=== PATIENT | male | born 1965 | race Caucasian/White ===

== ENCOUNTER 2025-04-07 13:36 | Emergency (ER) | payer OTHER, SELFPAY ==
--- NOTE | ~2025-04-07 | CT_ITS ---
EXAM: CT abdomen pelvis w con - 04/07/2025 15:19 CDT History: 59 years old Male with lower abdominal pain TECHNIQUE: Multidetector CT of the abdomen and pelvis with intravenous contrast. Coronal and sagitta l reformats were also provided for review. Automatic exposure control was used for this study. CONTRAST: 100 cc of Optiray 350 was used for this study. COMPARISON: None Available. FINDINGS: VISUALIZED CHEST: Visualized lungs are clear. ABDOMEN and PELVIS: LIVER: Within normal limits. GALLBLADDER: No calcified gallstones. BILE DUCTS: No dilatation. SPLEEN: Multiple calcified granulomas seen in the spleen. PANCREAS: Within normal limits. ADRENAL GLANDS: Within normal limits. KIDNEYS and URETERS: Enlarged prostate causing mild left hydroureter and moderate hydronephrosis. Mul tiple subcentimeter hypodensities are seen in both kidneys, too small to accurately characterize. Sim ple right renal cyst in lower pole of the right kidney. 8 mm calculus in the lower pole of the left k idney. URINARY BLADDER: Within normal limits. STOMACH and BOWEL: No abnormal bowel wall thickening. No obstruction or pneumatosis. Normal appendix. Multiple fluid-filled distended loops of jejunum are seen in the mid abdomen, a nonspecific finding and can be seen in enteritis. REPRODUCTIVE ORGANS: Enlarged prostate measuring up to 6 cm in greatest transverse dimension. Partial ly visualized probable hydrocele. Surgical clips are seen in the scrotum. MESENTERY/PERITONEAL CAVITY: No free fluid or pneumoperitoneum. LYMPH NODES: No abdominal or pelvic lymphadenopathy. ABDOMINAL WALL: Bilateral fat-containing inguinal hernias. VASCULATURE: Within normal limits. MUSCULOSKELETAL: Multilevel degenerative changes of the spine. IMPRESSION: 1. Enlarged prostate causing mild left hydroureter and moderate hydronephrosis. Multiple subcentimet er hypodensities are seen in both kidneys, too small to accurately characterize. Simple right renal c yst in lower pole of the right kidney. 2. Multiple fluid-filled distended loops of jejunum are seen in the mid abdomen, a nonspecific findi ng and can be seen in enteritis. 3. Partially visualized probable hydrocele. Reviewed, dictated and finalized at location A. IMPRESSION: 1. Enlarged prostate causing mild left hydroureter and moderate hydronephrosis . Multiple subcentimeter hypodensities are seen in both kidneys, too small to a ccurately characterize. Simple right renal cyst in lower pole of the right kidn ey. 2. Multiple fluid-filled distended loops of jejunum are seen in the mid abdome n, a nonspecific finding and can be seen in enteritis. 3. Partially visualized probable hydrocele.
[2025-04-07 13:41] VITALS: BP 158/97; PULSE 62; RESP 16; TEMP 36.8; O2SAT 99
[2025-04-07 14:06] VITALS: BP 175/97; PULSE 63; RESP 18; O2SAT 100
[2025-04-07 14:17] LABS: Hematocrit 48.0 % (42.0-52.0); Hemoglobin 15.7 g/dL (14.0-18.0); Immature Granulocyte Percent A 0.2 % (0-0.5); Lymphocytes Absolute Auto 0.88 K/mm3 (0.9-3.2); Mean Corpuscular HGB Conc 32.7 g/dl (32-36); Mean Corpuscular Hemoglobin 27.2 pg (26-34); Mean Corpuscular Volume 83.0 fl (80-100); Nucleated Red Blood Cells Absolute Auto 0.000 K/mm3 (0.0-0.012); Nucleated Red Blood Cells Perc 0.0 % (0.0-0.2); Platelet Count Result 190 k/mm3 (150-375); Red Blood Count 5.78 M/mm3 (4.6-6.20); White Blood Count 9.0 K/mm3 (4.5-10.0)
--- OUTSIDE RECORDS SUMMARY | 2025-04-07 14:28 | XMS_ITS | Continuity of Care Document ---
Author Organization [facility] Address [address] [place] [address] Phone Care Team Providers Care Apple Turner Name Role Phone Juwan Lauren OD Unavailable Unavailable Allergies, Adverse Reactions, Alerts Substance Reaction Status Criticality No Known Allergies Active No Inform ation Medications Medication Instructions Dosage Effective Dates (start - stop) Status Comments amlodipine 10 mg tablet Take 1 tablet ev robb day - Active carvedilol 12.5 mg tablet Take 1 tablet twice a day - Active hydrochlorothiazide 12.5 mg capsule Take 1 tablet every day - Active lisinopril 40 mg tablet Take 1 tablet ev robb day - Active sertraline 100 mg tablet Take 2 tablets every day - Active leflunomide 20 mg tablet Take 1 tablet e very day - Active Procedures Procedure Date CONTACT LENS SHIPPING FEE Oph Serv: Med Exam; Interm E 23 Refraction OCT Retina Offic/outpt E&m Estab Mod-hi 2 Script & Fit Contact; Ex Aphak 23 Refraction EST. Routine Exam Comprehensive 023 Cntct Lens Hydrophilic Sph/roderick Script & Fit Contact; Ex Aphak 22 Refraction EST. Routine Exam Comprehensive 022 Cntct Lens Hydrophilic Sph/roderick Mar-09-20 21 Script & Fit Contact; Ex Aphak 21 Refraction EST. Routine Exam Comprehensive 021 Cntct Lens Hydrophilic Sph/roderick 19 GLASSES CHECK Script & Fit Contact; Ex Aphak 19 Refraction New Routine Exam Comprehensive Advance Directives Directive Yes / No Effective Date File Name No Information Encounters Encounter Description Practice Location Reason(s) For Visit Diagnoses Date Provider Providers Copied on Encounter [facility], [address], [place], [place], [id number], [place] tel:[phone] [facility] No Information Lauren OD Jwuan. [address], [place], [address], [place]. tel:[phone] Referring Provider: Luis Chaves MD, [address] [place], [address]. tel:[phone] [facility] [employer] [facility], [address], [place], [place], [id number], [place] tel:[phone] [facility] No Information Lauren OD Juwan. [address], [place], [address], [place]. tel:[phone] Referring Provider: Juwan Lauren OD, [address], [place], [address]. tel:[phone] [facility] [address], [place], [place], [id number], [place] tel:[phone] [facility] cataract eval (chief complaint) Age-related nuclear cataract, bilateral Anastacio Smith. [address] [place], [address], [place]. tel:[phone] Referring Provider: Luis Chaves MD, [address] [place], [address]. tel:[phone] Offic/outpt E&m Estab Mod-hi 2 [facility] [employer] [facility], [address], [place], [place], [id number], [place] tel:[phone] [facility] problem (chief complaint) Age-related nuclear cataract, bilateralMyop ia, bilateral Lauren OD Juwan. [address], [place], [address], [place]. tel:[phone] Referring Provider: Juwan Lauren OD, [address], [place], [address]. tel:[phone] [facility], [address], [place], [place], [id number], [place] tel:[phone] [facility] routine exam (chief complaint) Encounter for exam of eyes and vision w abnormal findingsMyopi a, bilateralAge- related nuclear cataract, bilateral Lauren OD Juwan. [address], [place], [address], [place]. tel:[phone] Referring Provider: Juwan Lauren OD, [address], [place], [address]. tel:[phone] [facility], [address], [place], [place], [address], [place] tel:[phone] [facility] No Information Sonia OD Judy. [address], [facility] [place], [address], [place]. tel:[phone] Referring Provider: Judy Scott OD B, [address], [place], [address]. tel:[phone] [facility], [address], [place], [place], [id number], [place] tel:[phone] [facility] contact lens evaluation (chief complaint) Encounter for exam of eyes and vision w/o abnormal findingsMyopi a, bilateral Nov- Sonia OD Judy. [address], [facility] [place], [address], [place]. tel:[phone] Referring Provider: Judy Scott OD B, [address], [place], [address]. tel:[phone] [facility], [address], [place], [place], [id number], [place] tel:[phone] [facility] No Information Sonia OD Judy. [address], [place], [address], [place]. tel:[phone] Referring Provider: Judy Scott OD B, [address], [place], [address]. tel:[phone] [facility], [address], [place], [place], [id number], [place] tel:[phone] [facility] routine exam (chief complaint) Encounter for exam of eyes and vision w abnormal findingsMyopi a, bilateral Sonia Kim. [address], [place], [address], [place]. tel:[phone] Referring Provider: Judy Scott OD B, [address], [place], [address]. tel:[phone] [facility], [address], [place], [place], [id number], [place] tel:[phone] [facility] No Information Sonia Kim. [address], [place], [address], [place]. tel:[phone] Referring Provider: Judy Scott OD B, [address], [place], [address]. tel:[phone] [facility], [address], [place], [place], [id number], [place] tel:[phone] [facility] contact lens check (chief complaint) Myopia, bilateral Sonia OD Judy. [address], [place], [address], [place]. tel:[phone] Referring Provider: Judy Scott OD B, [address], [place], [address]. tel:[phone] [facility], [address], [place], [place], [id number], [place] tel:[phone] [facility] routine exam (chief complaint) Encounter for exam of eyes and vision w abnormal findingsMyopi a, bilateral Sonia OD Judy. [address], [place], [address], [place]. tel:[phone] Referring Provider: Judy Scott OD B, [address], [place], [address]. tel:[phone] Family History Family Member Type Diagnosis Age At Onset Father Problem (finding) cataract Father Problem (finding) hypertension Payers Payer name Insurance type Covered republican ID Authoriza tion(s) [facility] [id number] Social History Type Description Quantity Date Captured Comments Alcohol Use Details Unknown Caffeine Use Details Unknown Tobacco Use Status No Information Smoking Status No Information Sex Male Chief Complaint And Reason For Visit No Information Reason For Referral Reason For Referral No Information History Of Present Illness Encounter Date Complaint History Of Prese nt Illness cataract eval The 57 year old male presents for cataract eval in the left eye. Pt. states for the past 18 mos has noticed a gradual increase in blurry vision out of the left eye. The symptom is constant. It affects distance and near vision. Pt. feels right eye vision is stable. Denies any difficulty with glare at this time. problem The 57 year old male presents for problem in both eyes. Pt states that he feels cataract OS might have gotten worse. Pt denies any noticeable changes OD. Pt states that OS is cloudy. Pt sates that Thursday he was at the [employer] and he could not see the [employer] screen. Pt denies any other concerns or complaints. routine exam The 57 year old male presents for routine exam in both eyes. Patient reports distance and near vision have decreased in OS since [place]. DVA and NVA are stable in OD. He denies flashes of light, new floaters, and pain. routine exam The 56 year old male presents for contact lens evaluation in both eyes. Patients feels like the vision in distance could be stronger, he has to squint. Patient notices floaters in os. Patient denies any headaches, flashes. routine exam routine exam The 55 year old male presents for a routine exam and contact lens exam in the both eyes. His last eye exam was about 16 month(s) ago. It affects near vision. The condition is worsening. He is complaining of difficulty reading and seeing the computer.. He will need more contacts. He does have glasses. contact lens check The 53 year o ld male presents for evaluation of contact lens check in the right eye and left eye. Pt. states distance and near vision is stable with current contacts. Ready to order supply. routine exam The 53 year old male presents for evaluation of routine exam in the right eye and left eye. Pt states his vision has been stable since his last eye exam about one year ago. He states he is having some discomfort with his ctl that he has now. Pt denies pain/redness and floaters. Functional Status Date Functional Assessmen t No Information Instructions Date Instruction Additional Infor mation Age-related nuclear cataract, bilateral, OU - With high myopia would recommend holding off on cataract surgery at this time until both eyes have the same complaints of glare and decreased vision. Patient to return in 6 months or PRN cataract evaluation OU. Related to Age-related nuclear cataract, bilateral Age-related nuclear cataract, bilateral, OU - Discussed 3D myopic shift OS over last 18m is due to changing NS OS>OD. Cataract(s) accounts for patient's complaints. Patient understands changing glasses will not improve vision. Patient desires to have evaluation for surgery.Pt is MF ctl wearer. Discussed IOL options including ROSIBEL and MF lOL Related to Age-related nuclear cataract, bilateral Myopia, bilateral, O U - Will order stronger OS trial for CTL. Discussed if OD not ready for cat sx will likely be unable to wear glasses after IOL OS and will need CTL OD and maybe OS depending on IOL-- pt understands Related to Myopia, bilateral Age-related nuclear cataract, bilateral, OU - Early cataract(s) accounts for patient's complaints. No treatment currently recommended due to VA level, Patient will monitor vision changes and contact us with any decrease in vision, will re-evaluate cataract on return visit. Related to Age-related nuclear cataract, bilateral Myopia, bilateral, OU Related to Myopia, bilateral Encounter for examin ation of eyes and vision with abnormal findings, - Updated spec rx and ctl OU Related to Encounter for examination of eyes and vision with abnormal findings Patient education Related to Etienne marnie, bilateral Myopia, bilateral, O U - Discussed vision correction options in detail with patient. Glasses rx given. Patient given new Contact Lens Rx today. Patient was educated to NOT over wear contacts, no sleeping in lenses, and to dispose of lenses monthly as reviewed. Do not wear contacts if eyes are red or irritated. If eyes remain red or irritated, then return to the clinic for evaluation GILLIAN. Recommended a pair of back up glasses to use if unable to wear contacts for any reason. Related to Myopia, bilateral Encounter for examin ation of eyes and vision without abnormal findings, Related to Encounter for examination of eyes and vision without abnormal findings Patient education Related to Etienne marnie, bilateral Myopia, bilateral, O U - Discussed vision correction options in detail with patient. Glasses rx given. Patient given new Contact Lens Rx today. Patient was educated to NOT over wear contacts, no sleeping in lenses, and to dispose of lenses monthly as reviewed. Do not wear contacts if eyes are red or irritated. If eyes remain red or irritated, then return to the clinic for evaluation GILLIAN. Recommended a pair of back up glasses to use if unable to wear contacts for any reason. Related to Myopia, bilateral Encounter for examin ation of eyes and vision with abnormal findings, Related to Encounter for examination of eyes and vision with abnormal findings Myopia, bilateral, O U - good cl fit and acuity Related to Myopia, bilateral Patient education Related to Etienne marnie, bilateral Myopia, bilateral, O U - Discussed vision correction options in detail with patient. Glasses rx given. Patient given new Contact Lens Rx today. Patient was educated to NOT over wear contacts, no sleeping in lenses, and to dispose of lenses monthly as reviewed. Do not wear contacts if eyes are red or irritated. If eyes remain red or irritated, then return to the clinic for evaluation GILLIAN. Recommended a pair of back up glasses to use if unable to wear contacts for any reason. Related to Myopia, bilateral Encounter for examin ation of eyes and vision with abnormal findings, Related to Encounter for examination of eyes and vision with abnormal findings Patient education Related to Etienne marnie, bilateral Assessments Type Assessment Date No Information Patient Care Teams Name Effective Dates (start - stop) Status Members No Information
--- OUTSIDE RECORDS SUMMARY | 2025-04-07 14:28 | XMS_ITS | Continuity of Care Document ---
Author Organization [facility] Address [address] [place] [address] Phone Care Team Providers Care Nuclear Physician Name Role Phone Cornell GAYTAN, Yelena Unavailable Unavailable Allergies, Adverse Reactions, Alerts Substance Reaction Status Criticality No Known Allergies Active No Inform ation Medications Medication Instructions Dosage Effective Dates (start - stop) Status Comments leflunomide 20 mg tablet TAKE ONE TABLET BY MOUTH EVERY DAY - Active RX called to [facility] [phone] per patient request. SIRIA Enbrel 50 mg/mL (1 mL) subcutaneous syringe Inject 50mg by subcutaneous route once weekly - Active APPROVED 07/06/23 THROUGH 08/04/24 - amlodipine 10 mg tablet take 1 tablet by oral route every day 10 MG - Active lisinopril 40 mg tablet take 1 tablet by oral route every day 40 MG - Active sertraline 100 mg tablet take 1 tablet b y oral route every day 100 MG - Active hydrochlorothiazide 25 mg tablet take 1 tablet by oral route every day 25 MG - Active carvedilol 25 mg tablet take 1 tablet by oral route 2 times every day with food 25 MG - Active Fish Oil 1,000 mg (120 mg-180 mg) capsule Take as directed - Active niacin 500 mg tablet take 1 tablet by oral route 3 times every day 500 MG - Active Vitamin B-6 100 mg tablet Take as directed - Active potassium citrate 99 mg capsule Take as directed - Active magnesium 250 mg tablet Take as directed - Active zinc gluconate 50 mg tablet Take as directed - Active Problems Condition Type Effective Dates (start - stop) Clini flaquito Status Comments No Known Problems Procedures Procedure Date ESTABLISHED PATIENT VISIT - LEVEL 4 (30- 39 min) COMPLETE CBC W/ AUTO DIFF WBC HEPATIC FUNCTION PANEL ASSAY OF CREATININE C-REACTIVE PROTEIN VENIPUNCTURE COMPLETE CBC W/ AUTO DIFF WBC 3 HEPATIC FUNCTION PANEL ASSAY OF CREATININE ROUTINE VENIPUNCTURE ESTABLISHED PATIENT VISIT - LEVEL 4 (30- 39 min) COMPLETE CBC W/ AUTO DIFF WBC 3 HEPATIC FUNCTION PANEL ASSAY OF CREATININE C-REACTIVE PROTEIN ROUTINE VENIPUNCTURE IMMUNIZATION ADMIN Prevnar OFFICE/OUTPATIENT VISIT, [facility], LEVEL 4 Mt COMPLETE CBC W/ AUTO DIFF WBC 3 HEPATIC FUNCTION PANEL ASSAY OF CREATININE C-REACTIVE PROTEIN HEP A AB, TOTAL HEP B CORE AB, TOTAL HEP B SURFACE AB, QL HEP B SURFACE AG W/ CONF HEP C AB W/ REFL HCV TB TEST, CELL IMMUN MEASURE ROUTINE VENIPUNCTURE Prevnar IMMUNIZATION ADMIN COMPLETE CBC W/ AUTO DIFF WBC 3 HEPATIC FUNCTION PANEL ASSAY OF CREATININE ROUTINE VENIPUNCTURE COMPLETE CBC W/ AUTO DIFF WBC 3 HEPATIC FUNCTION PANEL ASSAY OF CREATININE ROUTINE VENIPUNCTURE COMPLETE CBC W/ AUTO DIFF WBC 3 HEPATIC FUNCTION PANEL ASSAY OF CREATININE ROUTINE VENIPUNCTURE OFFICE/OUTPATIENT VISIT, EST, LEVEL 4 Ja ROUTINE VENIPUNCTURE COMPLETE CBC W/ AUTO DIFF WBC 2 HEPATIC FUNCTION PANEL ASSAY OF CREATININE ROUTINE VENIPUNCTURE COMPLETE CBC W/ AUTO DIFF WBC 2 COMPREHENSIVE METABOLIC PANEL 2 ASSAY OF CK (CPK) ASSAY OF BLOOD/URIC ACID OFFICE CONSULTATION, LEVEL 5 ROUTINE VENIPUNCTURE COMPLETE CBC W/ AUTO DIFF WBC 2 C-REACTIVE PROTEIN RBC SED RATE, NONAUTOMATED COMPREHENSIVE METABOLIC PANEL 2 ASSAY OF CK (CPK) ASSAY OF BLOOD/URIC ACID RHEUMATOID FACTOR, QUANT CCP ANTIBODY X-RAY EXAM OF HAND (3+ VIEWS) 2 X-RAY EXAM OF HAND (3+ VIEWS) 2 Advance Directives Directive Yes / No Effective Date File Name No Information Encounters Encounter Description Practice Location Reason(s) For Visit Diagnoses Date Provider Providers Copied on Encounter [facility], [address] [place] [address], [id number], [place] tel:[phone] PATRICIA Physician [facility] No Information 4 Cornell Darling [address] [place] [address], [id number] , [place]. tel:[phone] ESTABLISHED PATIENT VISIT - LEVEL 4 (30-39 min) [facility], [address] [place] [address], [id number], [place] tel:[phone] PATRICIA Physician [facility] Follow Up of Psoriatic Arthritis (chief complaint) Body mass index (BMI) 27.0-27.9, adultArthropathic psoriasis, unspecifiedPsoriasi s, unspecifiedEncounte r for screening for respiratory tuberculosisBody mass index (BMI) 26.0-26.9, adultLong term use of drug 4 Cornell Darling [address] [place] [address], [id number] , [place]. tel:[phone] Referring Provider: Yelena Colmenares, [address] [place] [address], [id number] . tel:[phone] [facility], [address] [place] [address], [id number], [place] tel:[phone] Physician [facility] No Information 4 Cornell Darling [address] [place] [address], [id number] , [place]. tel:[phone] [facility], [address] [place] [address], [id number], [place] tel:[phone] Physician [facility] No Information 3 Cornell Darling [address] [place] [address], [id number] , [place]. tel:[phone] Referring Provider: Yelena Colmenares, [address] [place] [address], [id number] . tel:[phone] [facility], [address] [place] [address], [id number], [place] tel:[phone] Physician [facility] No Information 3 Cornell Darling [address] [place] [address], [id number] , [place]. tel:[phone] ESTABLISHED PATIENT VISIT - LEVEL 4 (30-39 min) [facility], [address] [place] [address], [id number], [place] tel:[phone] [facility] Follow Up of Psoriatic Arthritis (chief complaint) Arthropathic psoriasis, unspecifiedPsoriasi s, unspecifiedEncounte r for screening for respiratory tuberculosisBody mass index (BMI) 26.0-26.9, adultLong term use of drug 3 Cornell Darling [address] [place] [address], [id number] , [place]. tel:[phone] Referring Provider: Yelena Colmenares, [address] [place] [address], [id number] . tel:[phone] OFFICE/OUTPA TIENT VISIT, EST, LEVEL 4 [facility], [address] [place] [address], [id number], [place] tel:[phone] [facility] Follow Up of Psoriatic Arthritis (chief complaint) Arthropathic psoriasis, unspecifiedPsoriasi s, unspecifiedBody mass index (BMI) 26.0-26.9, adultLong term use of drugEncounter for screening for respiratory tuberculosis 3 Cornell Darling [address] [place] [address], [id number] , [place]. tel:[phone] Referring Provider: Derik Blackwell, [address], [place], [address]. tel:[phone] [facility], [address] [place] [address], [id number], [place] tel:[phone] [facility] No Information 3 Cornell Darling [address] [place] [address], [id number] , [place]. [phone] Referring Provider: Derik Blackwell, [address], [place], [address]. tel:[phone] [facility], [address] [place] [address], [id number], [place] tel:[phone] [facility] No Information 3 Cornell Darling [address] [place] [address], [id number] , [place]. tel: [phone] Referring Provider: Derik Blackwell, [address], [place], [address]. tel:[phone] [facility], [address] [place], [place], [id number], [place] tel:[phone] [facility] No Information 3 Cornell Darling [address] [place], [place], [id number] , [place]. tel:[phone] Referring Provider: Derik Blackwell, [address], [place], [address]. tel:[phone] OFFICE/OUTPA TIENT VISIT, EST, LEVEL 4 [facility], [address] [place] [address], [id number], [place] tel:[phone] [facility] Follow Up of Psoriatic Arthritis (chief complaint) Body mass index (BMI) 26.0-26.9, adultArthropathic psoriasis, unspecifiedPsoriasi s, unspecifiedLong term use of drug 3 Cornell Darling [address] [place] [address], [id number] , [place]. tel:[phone] Referring Provider: Yelena Colmenares, [address] [place] [address], [id number] . tel:[phone] [facility], [address] [place] [address], [id number], [place] tel:[phone] [facility] No Information 2 Cornell Darling [address] [place] [address], [id number] , [place]. tel:[phone] Referring Provider: Yelena Colmenares, [address] [place] [address], [id number] . tel:[phone] [facility], [address] [place], [place], [id number], [place] tel:[phone] [facility] No Information 2 Sarabiajosselyn [facility] [address] [place], [place], [id number] , [place]. tel:[phone] Referring Provider: Yelena Colmenares, [address] [place] [address], [id number] . tel:[phone] OFFICE CONSULTATION , LEVEL 5 [facility], [address] [place] [address], [id number], [place] tel:[phone] [facility] Body mass index (BMI) 26.0-26.9, adultPsoriatic arthritisScalp psoriasis 2 Cornell Darling [address] [place] [address], [id number] , [place]. tel:[phone] Referring Provider: Derik Blackwell, [address] [facility] [address], [place], [address]. tel:[phone] Family History Family Member Type Diagnosis Age At Onset Father Problem (finding) gout Immunizations Vaccine Date Status Comments Pneumococcal conjugate PCV administere d Source: New Immunization Record Payers Payer name Insurance type Covered alliance party ID Authoriza tion(s) [employer] Out Of [place] [facility] [id number] [employer] [place] [facility] [id number] Social History Type Description Quantity Date Captured Comments Alcohol Use Details Unknown Caffeine Use Details Unknown Tobacco Use Status No Information Smoking Status No Information Sex Male Chief Complaint And Reason For Visit No Information Reason For Referral Reason For Referral No Information Plan Of Treatment Date Type Action Status Referral Ordered: Derik José MD -[facility] : Family Medicine (related to Arthropathic psoriasis, unspecified) ordered Oct-11-2022 Referral Ordered: Derik José MD -[facility] Physicians : Family Medicine (related to Psoriatic arthritis) ordered Referral Referred To: Derik José MD [address]
[facility] [address] [place], [phone] Ordered: Referrals: [facility]opathic [facility] Osteopathic Physicians : Family Medicine. Derik José MD ordered Patient Education amlodipine 10 mg tablet completed History Of Present Illness Encounter Date Complaint History Of Prese nt Illness Follow Up of Psoriatic Arthritis Follow Up of Psoriatic Arthritis Follow Up of Psoriatic Arthritis Follow Up of Psoriatic Arthritis Functional Status Date Functional Assessmen t No Information Instructions Date Instruction Additional Infor mation Weight monitoring Related to Bod y mass index [BMI] 27.0-27.9, adult Weight monitoring Related to Bod y mass index [BMI] 26.0-26.9, adult Weight monitoring Related to Bod y mass index [BMI] 26.0-26.9, adult Weight monitoring Related to Bod y mass index [BMI] 26.0-26.9, adult Weight monitoring Related to Bod y mass index [BMI] 26.0-26.9, adult Assessments Type Assessment Date No Information Patient Care Teams Name Effective Dates (start - stop) Status Members No Information
--- OUTSIDE RECORDS SUMMARY | 2025-04-07 14:28 | XMS_ITS | Referral Summary ---
Author Organization [facility] Address [address] [place] [address] Care Team Providers Care Internship Name Role Phone Mikael Gordon MD Primary Care Provider [phone] Encounters Date Type Department Care Team Description 03/30/2025 Telephone [facility] Rheumatology [address] [place] [address] [address] [place] [address] Wanda Blackburn MD 03/25/2025 10:11 AM CDT - 03/25/2025 11:59 PM CDT Hospital Encounter [facility] [address] [place] [address] Nephrolithiasis Discharge Disposition: Discharge to home or self care 03/21/2025 2:50 PM CDT - 03/21/2025 11:59 PM CDT Hospital Encounter [facility] [id number] [place] [address] Psoriatic arthritis (HCC); High risk medication use Discharge Disposition: Discharge to home or self care 03/21/2025 3:00 PM CDT Lab [facility] Infectious Diseases [address] [place] [address] [address] [place] [address] 03/21/2025 2:30 PM CDT Office Visit [facility] Rheumatology [address] [place] [address] [address] [place] [address] Wanda Blackburn MD Psoriatic arthritis (HCC) (Primary Dx); High risk medication use; De Quervain's tenosynovitis, right 03/13/2025 7:22 AM CDT - 03/13/2025 11:59 PM CDT Hospital Encounter [facility] [address] [address] Nephrolithiasis Discharge Disposition: Discharge to home or self care 03/13/2025 9:20 AM CDT Office Visit [facility] [address] [facility] [address] [place] [address] Stanley Cowart MD Nephrolithiasis (Primary Dx); Urologic disorder 01/30/2025 Telephone [facility] Rheumatology [address] [facility] [address] [place] [address] Wanda Blackburn MD Prior Auth (Enbrel) from Last 3 Months Allergies No known active allergies Medications carvediloL (COREG) 25 mg tablet 12/08/19 24 Active sertraline (ZOLOFT) 100 mg tablet 11/09/19 24 Active DOCOSAHEXAENOI C ACID ORAL Take 3 capsules by mouth daily Active magnesium oxide (MAG-OX) 415 mg (250 mg elemental) tablet Take 250 mg by mouth daily Active niacin 500 mg tablet Take 1 tablet (500 mg total) by mouth daily Active pyridoxine (VITAMIN B-6) 100 mg tablet Take 1 tablet (100 mg total) by mouth daily Active zinc sulfate (ZINCATE) 50 mg zinc (220 mg) capsule Take 1 capsule (220 mg total) by mouth nightly Active cholecalcifero l (VITAMIN D-3) 5,000 unit tablet Active omeprazole (PriLOSEC) 20 mg capsuleIndicat ions:esophagit is/ulceration/ granulation tissue Take 2 capsules (40 mg total) by mouth 2 (two) times a day 120 capsule 11 11/18/19 25 Active hydroCHLOROthi azide (HYDRODIURIL) 25 mg tablet Take 1 tablet (25 mg total) by mouth daily 90 tablet 2 01/11/20 25 Active amLODIPine (NORVASC) 10 mg tablet Take 1 tablet (10 mg total) by mouth daily 90 tablet 2 03/01/20 25 Active lisinopriL (PRINIVIL,ZEST RIL) 40 mg tablet Take 1 tablet (40 mg total) by mouth daily 90 tablet 2 03/01/20 25 Active potassium citrate ER (UROCIT-K) 10 mEq (1,080 mg) CR tabletIndicati ons:Nephrolith iasis Take 2 tablets (20 mEq total) by mouth 2 (two) times a day 360 tablet 1 03/13/20 25 Active leflunomide (ARAVA) 20 mg tablet Take 1 tablet (20 mg total) by mouth every other day 45 tablet 1 03/21/20 25 026 Active EnbreL 50 mg/mL (1 mL) injectionIndic ations:Psoriat ic arthritis (HCC) Inject 1 mL (50 mg total) under the skin every 14 (fourteen) days 4 mL 5 03/30/20 25 026 Active EnbreL 50 mg/mL (1 mL) injection Inject 1 mL (50 mg total) under the skin once a week 4 mL 11 08/08/20 24 025 Discontinued leflunomide (ARAVA) 20 mg tablet Take 1 tablet (20 mg total) by mouth every other day 15 tablet 5 08/08/20 24 025 Discontinued(Re order) potassium citrate ER (UROCIT-K) 10 mEq (1,080 mg) CR tablet TAKE 2 TABLETS BY MOUTH TWICE A DAY 360 tablet 1 12/07/19 25 025 Discontinued(Re order) potassium citrate ER (UROCIT-K) 10 mEq (1,080 mg) CR tabletIndicati ons:Nephrolith iasis Take 2 tablets (20 mEq total) by mouth 2 (two) times a day 360 tablet 1 03/13/20 25 025 Discontinued EnbreL 50 mg/mL (1 mL) injection Inject 1 mL (50 mg total) under the skin every 14 (fourteen) days 2 mL 11 03/21/20 25 025 Discontinued(Re order) leflunomide (ARAVA) 20 mg tablet Take 1 tablet (20 mg total) by mouth every other day 15 tablet 5 03/21/20 25 025 Discontinued Active Problems Problem Noted Date Diagnosed Date Encounter for screening colonoscopy 10/19/2024 Assessment & Plan (10/19/2024 8:03 AM POLICE DISTRICT SWITCHBOARD OPERATOR): Arranging colonoscopy. Other dysphagia 10/19/2024 Assessment & Plan (10/19/2024 8:03 AM POLICE DISTRICT SWITCHBOARD OPERATOR): With progressive symptoms would recommend EGD. Nephrolithiasis 01/17/2024 Overview (03/13/2025): 01/18/24: NC. Nephrolithiasis, UPJO. S/p pyeloplasty, laparoscopic lithotomy (Christina, ). Plan - SAMANTA, NMRw/L, hydration, K-citrate, MIS referral for symptomatic hernia. 03/13/25: RP. SAMANTA (02/24/24) - left mild hydronephrosis, ?non-obstructing renal stones. NMRw/L (02/24/24) - 50:50 split function; L: t1/2 10.7m. SAMANTA pending. HTN (hypertension) Assessment & Plan (10/19/2024 8:02 AM POLICE DISTRICT SWITCHBOARD OPERATOR): BP at target. Continue medication for target directed therapy Psoriatic arthritis Assessment & Plan (10/19/2024 8:03 AM POLICE DISTRICT SWITCHBOARD OPERATOR): Remains on Enbrel and Arava. This is managed by Rheumatology. There is some consideration for tapering these drugs going forward apparently Social History Tobacco Use Types Packs/Day Years Used Date Smoking Tobacco: Never Smokeless Tobacco: Never Tobacco Cessation:Counseling Given: Not Answered AUDIT-C Answer Date Recorded Q1: How often do you have a drink containing alc ohol? Never 11/14/2024 Average Number of Drinks Not on file 025 Frequency of Binge Drinking Not on file 11/2024 Personal Safety Answer Date Recorded Have you ever been in or are you currently in a harmful physical or emotional relationship or is someone making you feel afraid or unsafe? Denies 11/14/2024 Sex and Gender Information Value Date Recorded Sex Assigned at Not on file Legal Sex Male 3:36 PM CDT Gender Identity Not on file Sexual Orientation Not on file Last Filed Vital Signs Vital Sign Reading Time Taken Comments Blood Pressure 148/87 03/21/2025 2:22 PM CDT Pulse 70 03/21/2025 2:22 PM CDT Temperature 36.4 C (97.6 F) 03/21/2025 2:22 PM CDT Respiratory Rate 10 11/14/2024 11:2 3 AM [employer] DISTRICT SWITCHBOARD OPERATOR Oxygen Saturation 97% 03/21/2025 2:22 PM CDT Inhaled Oxygen Concentration - - Weight 106.4 kg (234 lb 9.6 oz) 03/21/2025 2:22 PM CDT Height 193 cm (6' 4) 03/21/2025 2:22 PM CDT Body Mass Index 28.56 03/21/2025 2:22 PM CDT Plan of Treatment Scheduled Procedures Name Priority Associated Diagnoses Date/Ti me ESOPHAGOGASTRODUODENOSCOPY Open Access Other dysphagia Procedures Procedure Name Priority Date/Time Associated Diagnosis Comments CT KUB STONE WO CONTRAST Schedule Routine, Read Routine (OP Routine) 03/25/2025 10:17 AM CDT Nephrolithiasis LITHOLINK 24HR URINE PANEL Routine 03/24/2025 6:44 AM CDT Nephrolithiasis LITHOLINK 24HR URINE PANEL Routine 03/23/2025 5:25 AM CDT Nephrolithiasis EGFR Routine 03/21/2025 2:50 PM CDT Psoriatic arthritis (HCC) High risk medication use DIFFERENTIAL AUTO Routine 03/21/2025 2:5 0 PM CDT Psoriatic arthritis (HCC) High risk medication use ERYTHROCYTE SEDIMENTATION RATE Routine 03/21/2025 2:50 PM CDT Psoriatic arthritis (HCC) COMPREHENSIVE METABOLIC PANEL Routine 03/21/2025 2:50 PM CDT Psoriatic arthritis (HCC) High risk medication use CBC WITH AUTO DIFFERENTIAL Routine 03/21/2025 2:50 PM CDT Psoriatic arthritis (HCC) High risk medication use CRP (ACUTE PHASE) Routine 03/21/2025 2:5 0 PM CDT Psoriatic arthritis (HCC) US KIDNEY COMPLETE Schedule Routine, Read Routine (OP Routine) 03/13/2025 8:09 AM CDT Nephrolithiasis COLONOSCOPY 11/14/2024 10:31 AM [employer]ICE DISTRICT SWITCHBOARD OPERATOR HEPATITIS C ANTIBODY Routine 07/12/2024 3:39 PM CDT High risk medication use PSA SCREEN Routine 04/13/2024 11:26 AM CDT Screening for prostate cancer from Last 3 Months or Most Recently Relevant to Health Maintenance Results * CT KUB Stone WO Contrast (03/25/2025 10:17 AM CDT) Anatomical Region Laterality Modality Abdomen N/A Computed Tomogra phy 03/25/2025 10:3 2 AM CDT Impressions 03/25/2025 10:32 AM CDT Nonobstructive 8 mm calculus in the lower pole calyx of the left kidney. Electronically signed by: Jerzy Lo MD, Ph.D Narrative 03/25/2025 10:32 AM CDT EXAMINATION: Computed tomography of abdomen/pelvis without intravenous contrast HISTORY:nephrolithiasis TECHNIQUE: Transaxial computed tomographic images of the abdomen/pelvis were obtained without intravenous contrast according to the standard protocol. COMPARISON: 07/11/2024 MRI FINDINGS: VISUALIZED CHEST Normal ABDOMEN/PELVIS Liver: Liver is normal. No biliary ductal dilatation. Gallbladder: Surgically absent. Pancreas: Normal. Spleen: Calcifications represent old granulomatous disease. Adrenals: Normal. Kidneys: No hydronephrosis. Nonobstructive 8 mm calculus in the lower pole of the left kidney. Bladder: Normal. Reproductive organs: Normal. Bowel: No bowel obstruction. No free intra-abdominal air or fluid. Lymph nodes: No lymphadenopathy. Bones: No suspicious osseous lesion. Procedure Note Jerzy Rosario MD PhD - 03/25/2025 EXAMINATION: Computed tomography of abdomen/pelvis without intravenous contrast HISTORY:nephrolithiasis TECHNIQUE: Transaxial computed tomographic images of the abdomen/pelvis were obtained without intravenous contrast according to the standard protocol. COMPARISON: 07/11/2024 MRI FINDINGS: VISUALIZED CHEST Normal ABDOMEN/PELVIS Liver: Liver is normal. No biliary ductal dilatation. Gallbladder: Surgically absent. Pancreas: Normal. Spleen: Calcifications represent old granulomatous disease. Adrenals: Normal. Kidneys: No hydronephrosis. Nonobstructive 8 mm calculus in the lower pole of the left kidney. Bladder: Normal. Reproductive organs: Normal. Bowel: No bowel obstruction. No free intra-abdominal air or fluid. Lymph nodes: No lymphadenopathy. Bones: No suspicious osseous lesion. IMPRESSION: Nonobstructive 8 mm calculus in the lower pole calyx of the left kidney. Electronically signed by: Jerzy Lo MD, Ph.D us Stanley Cowart MD IMG CT PROCEDURES Final Result * (ABNORMAL) Litholink 24Hr Urine Panel (03/24/2025 6:44 AM CDT) Cystine, Urine, Qualitative CANCELED [facility] - 01 Comment: Test not performed. Previous test results on file. Result canceled by the ancillary. Urine Volume (Preserved) 2,840 500 - 4,000 mL/24 hr [facility] - 01 Calcium Oxalate Saturation 3.02(L) 6.00 - 10.00 [facility] - 01 Calcium, Urine 136 <250 mg/24 hr [facility] - 01 Oxalate, Urine 42(H) 20 - 40 mg/24 hr [facility] - 01 Citrate, Urine 325(L) >450 mg/24 hr [facility] - 01 Calcium Phosphate Saturation 0.60 0.50 - 2.00 [facility] - 01 pH, 24 hr, Urine 6.122 5.800 - 6.200 [facility] - 01 Uric Acid Saturation 0.54 <1.00 [facility] - 01 Uric Acid, Urine 943(H) <800 mg/24 hr [facility] - 01 Sodium, Urine 141 50 - 150 mmol/24 hr [facility] - 01 Potassium, Urine 81 20 - 100 mmol/24 hr [facility] - 01 Magnesium, Urine 132(H) 30 - 120 mg/24 hr [facility] - 01 Phosphorus, Urine 1,522(H) 600 - 1,200 mg/24 hr [facility] - 01 Ammonium, Urine 47 15 - 60 mmol/24 hr [facility] - 01 Chloride, Urine 139 70 - 250 mmol/24 hr [facility] - 01 Sulfate, Urine 47 20 - 80 meq/24 hr [facility] - 01 Urea Nitrogen, Urine 14.35(H) 6.00 - 14.00 g/24 hr [facility] - 01 Protein Catabolic Rate 1.0 0.8 - 1.4 g/kg/24 hr [facility] - 01 Creatinine, Urine 2,168 Not Applic. mg/24 hr [facility] - 01 Creatinine/Kg Body Weight 20.8 11.9 - 24.4 mg/24 hr/kg [facility] - 01 Calcium/Kg Body Weight 1.3 <4.0 mg/24 hr/kg [facility] - 01 Calcium/Creatini ne Ratio 63 34 - 196 mg/g creat [facility] - 01 Comment Note [facility] - 01 Urine 03/24/2025 6:44 AM CDT 03/25/2025 Narrative [facility] - 03/29/2025 1:07 AM CDT Performed at: [address] [id number] Elevator Service Technician: Dimitrios Wiley PhD, Phone: [phone] Stanley Cowart MD LAB URINE ORDERABLES Kahlil john Result - [facility] 01 * (ABNORMAL) Litholink 24Hr Urine Panel (03/23/2025 5:25 AM CDT) Cystine, Urine, Qualitative CANCELED [facility] - 01 Comment: Test not performed. Previous test results on file. Result canceled by the ancillary. Urine Volume (Preserved) 3,370 500 - 4,000 mL/24 hr [facility] - 01 Calcium Oxalate Saturation 2.74(L) 6.00 - 10.00 [facility] - 01 Calcium, Urine 118 <250 mg/24 hr [facility] - 01 Oxalate, Urine 51(H) 20 - 40 mg/24 hr [facility] - 01 Citrate, Urine 432(L) >450 mg/24 hr [facility] - 01 Calcium Phosphate Saturation 0.62 0.50 - 2.00 [facility] - 01 pH, 24 hr, Urine 6.763(H) 5.800 - 6.200 [facility] - 01 Uric Acid Saturation 0.12 <1.00 [facility] - 01 Uric Acid, Urine 920(H) <800 mg/24 hr [facility] - 01 Sodium, Urine 135 50 - 150 mmol/24 hr [facility] - 01 Potassium, Urine 77 20 - 100 mmol/24 hr [facility] - 01 Magnesium, Urine 133(H) 30 - 120 mg/24 hr [facility] - 01 Phosphorus, Urine 919 600 - 1,200 mg/24 hr [facility] - 01 Ammonium, Urine 40 15 - 60 mmol/24 hr [facility] - 01 Chloride, Urine 125 70 - 250 mmol/24 hr [facility] - 01 Sulfate, Urine 48 20 - 80 meq/24 hr [facility] - 01 Urea Nitrogen, Urine 15.94(H) 6.00 - 14.00 g/24 hr [facility] - 01 Protein Catabolic Rate 1.1 0.8 - 1.4 g/kg/24 hr [facility] - 01 Creatinine, Urine 1,939 Not Applic. mg/24 hr [facility] - 01 Creatinine/Kg Body Weight 18.6 11.9 - 24.4 mg/24 hr/kg [facility] - 01 Calcium/Kg Body Weight 1.1 <4.0 mg/24 hr/kg [facility] - 01 Calcium/Creatini ne Ratio 61 34 - 196 mg/g creat [facility] - 01 Comment Note [facility] - 01 Comment: The report contained on accession [id number] and [id number] is the same. Urine 03/23/2025 5:25 AM CDT 03/25/2025 Narrative [facility] - 03/29/2025 1:07 AM CDT Performed at: - [facility] [id number] Elevator Service Technician: Dimitrios Wiley PhD, Phone: [phone] us Stanley Cowart MD LAB URINE ORDERABLES Kahlil john Result - Final [facility] - 01 * eGFR (03/21/2025 2:50 PM CDT) eGFR 77 >=60 mL/min/1. 73 m2 Comment: Interpretive Data Reference Interval Normal >/= 90 mL/min/1.73m2 Mildly decreased* 60 - 89 mL/min/1.73m2 Mildly to moderately decreased 45 - 59 mL/min/1.73m2 Moderately to severely decreased 30 - 44 mL/min/1.73m2 Severely decreased 15 - 29 mL/min/1.73m2 Kidney Failure < 15 mL/min/1.73m2 *Relative to young adult level Estimated glomerular filtration rate is determined by the 2020 CKD-EPI equation recommended by the National Kidney Foundation (A Unifying Approach to GFR Estimation: Recommendations of the NKF-ASK Task Force on Reassessing the Inclusion of Race in Diagnosing Kidney Disease, JASN 2020). The CKD-EPI equation should not be used for patients with unstable renal function and has not been validated in children and those over 70. Current interpretive data was last reviewed 2021. Blood 03/21/2025 2:50 PM CDT 03/21/2025 7:54 PM CDT Wanda Muñoz MD LAB BL OOD ORDERABLES Final Result [facility] [address] Department [place] [address] * Differential, auto (03/21/2025 2:50 PM CDT) Pathologist [facility] Neutrophil abs 2.85 1.50 - 6.50 K/cumm Imm gran abs 0.01 0.00 - 0.10 K/cumm [facility] Lymphocyte abs 1.49 0.80 - 3.30 K/cumm [facility] Monocyte abs 0.49 0.20 - 0.80 K/cumm [facility] Eosinophil abs 0.32 0.00 - 0.50 K/cumm [facility] Basophil abs 0.04 0.00 - 0.10 K/cumm [facility] Neutrophil pct 54.7 % [facility] Comment: Interpretive Data Percent cell count reference ranges are not reported, since discordance with absolute values may lead to misinterpretation of CBC data. Current Interpretive Data was last revised on 2017. Imm gran pct 0.2 % [facility] Comment: Interpretive Data Percent cell count reference ranges are not reported, since discordance with absolute values may lead to misinterpretation of CBC data. Current Interpretive Data was last revised on 2017. Lymphocyte pct 28.7 % [facility] Comment: Interpretive Data Percent cell count reference ranges are not reported, since discordance with absolute values may lead to misinterpretation of CBC data. Current Interpretive Data was last revised on 2017. Monocyte pct 9.4 % [facility] Comment: Interpretive Data Percent cell count reference ranges are not reported, since discordance with absolute values may lead to misinterpretation of CBC data. Current Interpretive Data was last revised on 2017. Eosinophil pct 6.2 % [facility] Comment: Interpretive Data Percent cell count reference ranges are not reported, since discordance with absolute values may lead to misinterpretation of CBC data. Current Interpretive Data was last revised on 2017. Basophil pct 0.8 % [facility] Comment: Interpretive Data Percent cell count reference ranges are not reported, since discordance with absolute values may lead to misinterpretation of CBC data. Current Interpretive Data was last revised on 2017. Blood 03/21/2025 2:50 PM CDT 03/21/2025 7:13 PM CDT Wanda Muñoz MD LAB BL OOD ORDERABLES Final Result [facility] [address] Department [place] [address] * (ABNORMAL) CBC with auto differential (03/21/2025 2:50 PM CDT) WBC 5.20 3.80 - 9.90 K/cumm Hgb 15.6 13.0 - 17.5 g/dL [facility] Hct 49.0 38.9 - 50.3 % [facility] Plt 202 150 - 400 K/cumm [facility] MPV 10.5 9.1 - 12.3 fL [facility] RBC 5.79 4.30 - 5.80 M/cumm [facility] MCV 84.6 81.3 - 96.4 fL [facility] MCH 26.9(L) 27.1 - 33.3 pg [facility] MCHC 31.8(L) 32.3 - 35.7 g/dL [facility] RDW CV 13.6 11.1 - 14.9 % [facility] RDW SD 42.1 35.7 - 48.1 fL [facility] NRBC abs 0.00 0.00 - 0.01 K/cumm [facility] Blood 03/21/2025 2:50 PM CDT 03/21/2025 7:13 PM CDT Wanda Muñoz MD LAB BL OOD ORDERABLES Final Result Performing Organization Address City/[facility]/ZIP Co de Phone Number JEN [phone] [employer] [place], [place] [id number] * Erythrocyte sedimentation rate (03/21/2025 2:50 PM CDT) Erythrocyte sedimentation rate 12 1 - 20 mm/hr Blood 03/21/2025 2:50 PM CDT 03/21/2025 7:13 PM CDT Wanda Muñoz MD LAB BL OOD ORDERABLES Final Result [facility] [address] [facility] [place] [place] [address] * CRP (acute phase) (03/21/2025 2:50 PM CDT) CRP <3.0 <=10.0 mg/L Blood 03/21/2025 2:50 PM CDT 03/21/2025 7:13 PM CDT Wanda Muñoz MD LAB BL OOD ORDERABLES Final Result [facility] [address] Department [place] [address] * Comprehensive metabolic panel (03/21/2025 2:50 PM CDT) Sodium 142 135 - 145 mmol/L Potassium, pl 3.9 3.3 - 4.9 mmol/L [facility] Chloride 104 97 - 110 mmol/L [facility] CO2 28 22 - 32 mmol/L [facility] Anion gap 10 2 - 15 mmol/L [facility] BUN 18 6 - 25 mg/dL [facility] Creatinine 1.10 0.80 - 1.30 mg/dL [facility] Glucose 106 70 - 199 mg/dL [facility] Comment: Interpretive Data Fasting glucose >/= 126 mg/dl is diagnostic for diabetes. Fasting is defined as no caloric intake for at least 8 hours. Fasting glucose between 100 mg/dl to 125 mg/dl is diagnostic of prediabetes. In a patient with classic symptoms of hyperglycemia or hyperglycemic crisis, a random glucose >/= 200 mg/dl is diagnostic for diabetes. In the absence of unequivocal hyperglycemia, results should be confirmed by repeat testing. The classification and Diagnosis of Diabetes Diabetes Care 202; 46: S19-S40. Current interpretive data was last revised 2022. Calcium 9.3 8.5 - 10.3 mg/dL [facility] Bilirubin, total 0.5 0.1 - 1.2 mg/dL [facility] Protein, pl 7.4 6.5 - 8.5 g/dL [facility] Albumin 4.4 3.5 - 5.0 g/dL [facility] Alk phos 98 40 - 130 Units/L [facility] ALT 50 7 - 55 Units/L [facility] AST 40 10 - 50 Units/L [facility] Blood 03/21/2025 2:50 PM CDT 03/21/2025 7:13 PM CDT Wanda Muñoz MD LAB BL OOD ORDERABLES Final Result [facility] [address] Department [place] [address] * US Kidney Complete (03/13/2025 8:09 AM CDT) Anatomical Region Laterality Modality Kidney N/A Ultrasound 03/13/2025 8:39 AM CDT Impressions 03/13/2025 8:49 AM CDT Stable mild to moderate left hydronephrosis with scattered nonobstructing stones that have likely progressed the interval. Dictated by: Grover Hagen MD The radiology attending physician has personally reviewed this study, and had reviewed and/or edited this written report and agrees with it. Electronically signed by: Leonel Crespo M.D. Narrative 03/13/2025 8:49 AM CDT EXAMINATION: COMPLETE RENAL SONOGRAM HISTORY: Patient with history of left ureteropelvic junction obstruction with pyeloplasty and residual left-sided hydronephrosis with history of nephrolithiasis. COMPARISON: Ultrasound from 02/24/2024 FINDINGS: Kidneys: The echogenicity of both kidneys is normal. The kidneys are normal in size. The right kidney measures 12.3 cm in length, and the left, 0.8 cm in length. Right renal simple fluid filled cyst measures up to 2.6 cm. There is stable mild to moderate left hydronephrosis. Scattered left renal stones are identified. They are more apparent than on the prior examination and likely have progressed in the interval Bladder: The urinary bladder is normal Procedure Note Leonel Crespo MD - 03/13/2025 EXAMINATION: COMPLETE RENAL SONOGRAM HISTORY: Patient with history of left ureteropelvic junction obstruction with pyeloplasty and residual left-sided hydronephrosis with history of nephrolithiasis. COMPARISON: Ultrasound from 02/24/2024 FINDINGS: Kidneys: The echogenicity of both kidneys is normal. The kidneys are normal in size. The right kidney measures 12.3 cm in length, and the left, 0.8 cm in length. Right renal simple fluid filled cyst measures up to 2.6 cm. There is stable mild to moderate left hydronephrosis. Scattered left renal stones are identified. They are more apparent than on the prior examination and likely have progressed in the interval Bladder: The urinary bladder is normal IMPRESSION: Stable mild to moderate left hydronephrosis with scattered nonobstructing stones that have likely progressed the interval. Dictated by: Grover Hagen MD The radiology attending physician has personally reviewed this study, and had reviewed and/or edited this written report and agrees with it. Electronically signed by: Leonel Crespo M.D. Stanley Cowart MD [facility] PROCEDURES Final Result * Colonoscopy (11/14/2024 10:31 AM POLICE DISTRICT SWITCHBOARD OPERATOR) Anatomical Region Laterality Modality Other Narrative Procedure Note Malcolm Juarez MD - 11/14/2024 10:31 AM [facility] Patient Name: Avtar Vizcarra Procedure Date: 11/14/2024 10:31 AM Date of : 1965 Admit Type: Outpatient Age: 59 Gender: Male Attending MD: Malcolm Juarez M.D. Room: [facility] ENDOSCOPY ROOM 4 Note Status: Finalized Procedure: Colonoscopy Indications: Screening for colorectal malignant neoplasm, Last colonoscopy: 2014 Referring MD: Mikael Gordon M.D. Providers: Malcolm Juarez M.D., Elizabeth Nava M.D. Medicines: See the Anesthesia note for documentation of the administered medications Complications: No immediate complications. Estimated Blood Loss: Estimated blood loss: none. Procedure: Pre-Anesthesia Assessment: - After reviewing the risks and benefits, thepatient was deemed in satisfactory condition to undergo the procedure. - Immediately prior to administration ofmedications, the patient was re-assessed for adequacy to receive sedatives. - The risks and benefits of the procedure and the sedation options and risks were discussed with the patient. All questions were answered and informed consent was obtained. The benefits, risks and alternatives of theprocedure and sedation were discussed and informed consentwas obtained. All questions were answered. Please referto the signed informed consent document in the medical record. The scope was passed under direct vision.The [id number] endoscope was introduced through the anus and advanced to the cecum, identified by appendiceal orifice and ileocecal valve. The colonoscopy was performed without difficulty. The patient tolerated the procedure well. The qualityof the bowel preparation was evaluated using the BBPS ([place] Bowel Preparation Scale) with scores of:Right Colon = 2 (minor amount of residual staining, small fragments of stool and/or opaque liquid, but mucosa seen well), Transverse Colon = 3 (entire mucosaseen well with no residual staining, small fragments of stool or opaque liquid) and Left Colon = 3 (entire mucosa seen well with no residual staining, small fragments of stool or opaque liquid). The totalBBPS score equals 8. The quality of the bowelpreparation was excellent. The bowel preparation used wasGoLYTELY via split dose instruction. The quality of thebowel preparation was excellent. Findings: The entire examined colon appeared normal. Non-bleeding internal hemorrhoids were found during retroflexion. The hemorrhoids were small. Impression: - The entire examined colon is normal. - Non-bleeding internal hemorrhoids. - No specimens collected. Recommendation: - Repeat colonoscopy in 10 years for screening purposes. Electronically signed by Malcolm Juarez MD Malcolm Juarez M.D. 11/14/2024 11:13:02 AM . Number of Addenda: 0 Note Initiated On: 11/14/2024 10:31 AM Malcolm Juarez MD ENDOSCOPY PROCEDURES Final Result * Hepatitis C antibody Blood (07/12/2024 3:39 PM CDT) Hep C Ab NON-REACTI VE NON-REACT AVANI [facility] Comment: HCV antibody was non-reactive. There is no laboratory evidence of HCV infection. In most cases, no further action is required. However, if recent HCV exposure is suspected, a test for HCV RNA (test code 98638) is suggested. For additional information please refer to http://education.FlexGen/faq/OCJ27p3 (This link is being provided for informational/ educational purposes only.) Blood 07/12/2024 3:39 PM CDT 07/12/2024 3:39 PM CDT Wanda Muñoz MD LAB MICROBIOLOGY - GENERAL ORDERABLES Final Result [facility] [place] [address] [place] [address] * PSA screen (04/13/2024 11:26 AM CDT) PSA 2.7 0.0 - 4.0 ng/mL [facility] - 01 Comment: Graeme ECLIA methodology. According to the [place] [employer], Serum PSA should decrease and remain at undetectable levels after radical prostatectomy. The AUA defines biochemical recurrence as an initial PSA value 0.2 ng/mL or greater followed by a subsequent confirmatory PSA value 0.2 ng/mL or greater. Values obtained with different assay methods or kits cannot be used interchangeably. Results cannot be interpreted as absolute evidence of the presence or absence of malignant disease. Blood 04/13/2024 11:2 6 AM CDT 04/13/2024 Narrative [facility] - 04/14/2024 8:19 AM CDT Performed at: - [facility] [address] [id number] Elevator Service Technician: Hilario Coronado PhD, Phone: [phone] Mikael Gordon MD LAB BLOOD ORDERABLES Final Re sult [facility] - 01 from Last 3 Months or Most Recently Relevant to Health Maintenance Insurance [facility]PPO [place] [address] [facility] Address: [id number] [place] [address] [id number] [place] [address] [facility]/PPO Address: [place] [address] Care Teams Internship Relationship Specialty Start Date End Date Mikael Gordon MD PCP - General Internal Medicine 04/13/24
--- OUTSIDE RECORDS SUMMARY | 2025-04-07 14:28 | XMS_ITS | Clinical Summary ---
Author Organization [facility] Address [address] [place] [address] Care Team Providers Care Patient Access Associate Name Role Phone Mikael Gordon MD Primary Care Provider [phone] Allergies No known active allergies Medications carvediloL [...] 10/19/2024 Assessment & Plan (10/19/2024 8:03 AM CASCARA BARK CUTTER): Arranging colonoscopy. Other dysphagia 10/19/2024 Assessment & Plan (10/19/2024 8:03 AM CASCARA BARK CUTTER): With progressive symptoms would recommend EGD. Nephrolithiasis 01/17/2024 Overview (03/13/2025): 01/18/24: NC. Nephrolithiasis, UPJO. S/p pyeloplasty, laparoscopic lithotomy (Christina, ). Plan - SAMANTA, NMRw/L, hydration, K-citrate, MIS referral for symptomatic hernia. 03/13/25: RP. SAMANTA (02/24/24) - left mild hydronephrosis, ?non-obstructing renal stones. NMRw/L (02/24/24) - 50:50 split function; L: t1/2 10.7m. SAMANTA pending. HTN (hypertension) Assessment & Plan (10/19/2024 8:02 AM CASCARA BARK CUTTER): BP at target. Continue medication for target directed therapy Psoriatic arthritis Assessment & Plan (10/19/2024 8:03 AM CASCARA BARK CUTTER): Remains on Enbrel and Arava. This is managed by Rheumatology. There is some consideration for tapering these drugs going forward apparently Encounters Date Type Department Care Team Description 03/30/2025 Telephone [facility] Rheumatology [address] [place] [address] Wanda Blackburn MD 03/25/2025 10:11 AM CDT - 03/25/2025 11:59 PM CDT Hospital Encounter [facility] [address] [place] [address] Nephrolithiasis Discharge Disposition: Discharge to home or self care 03/21/2025 3:00 PM CDT Lab [facility] Infectious Diseases [address] [place] [address] 03/21/2025 2:50 PM CDT - 03/21/2025 11:59 PM CDT Hospital Encounter [address] [place] [address] Psoriatic arthritis (HCC); High risk medication use Discharge Disposition: Discharge to home or self care 03/21/2025 2:30 PM CDT Office Visit [facility] Rheumatology [address] [place] [address] Wanda Blackburn MD Psoriatic arthritis (HCC) (Primary Dx); High risk medication use; De Quervain's tenosynovitis, right 03/13/2025 9:20 AM CDT Office Visit [facility] Urology [address] [facility] [address] [place] [address] Stanley Cowart MD Nephrolithiasis (Primary Dx); Urologic disorder 03/13/2025 7:22 AM CDT - 03/13/2025 11:59 PM CDT Hospital Encounter [facility] [address] [place] [address] Nephrolithiasis Discharge Disposition: Discharge to home or self care 01/30/2025 Telephone [facility] Rheumatology [address] [place] [address] Wanda Blackburn MD Prior Auth (Enbrel) from Last 3 Months Surgical History Surgery Date Site/Laterality Comments CHOLECYSTECTOMY 09/14/2009 - 09/13/2010 CYSTOURETHROSCOPY LAPAROSCOPIC INGUINAL HERNIA REPAIR 04/14/2023 Bilat eral HERNIA REPAIR 09/14/2021 - 09/13/2022 Medical History Medical History Date Comments HTN (hypertension) Psoriatic arthritis (HCC) Anxiety Depression Family History Medical History Relation Name Comments Hypertension Brother Heart disease Father Hypertension Father Relation Name Status Comments Brother Father Social History Tobacco Use Types Packs/Day Years [...] on file Sexual Orientation Not on file Obstetrics History Last Filed Vital Signs Vital Sign Reading Time Taken Comments Blood Pressure 148/87 03/21/2025 2:22 PM CDT Pulse 70 03/21/2025 2:22 PM CDT Temperature 36.4 C (97.6 F) 03/21/2025 2:22 PM CDT Respiratory Rate 10 11/14/2024 11:2 3 AM CASCARA BARK CUTTER Oxygen Saturation 97% 03/21/2025 2:22 PM CDT Inhaled Oxygen Concentration - - Weight 106.4 kg (234 lb 9.6 oz) 03/21/2025 2:22 PM CDT Height 193 cm (6' 4) 03/21/2025 2:22 PM CDT Body Mass Index 28.56 03/21/2025 2:22 PM CDT Plan of Treatment Scheduled Procedures Name Priority Associated Diagnoses Date/Ti me ESOPHAGOGASTRODUODENOSCOPY Open Access Other dysphagia Health Maintenance Due Date Last Done Comments Depression Screening 1965 DTaP/Tdap/Td Vaccine (1 - Tdap) 1976 Regular Well Visit/Exam 18-64 1983 Zoster Vaccine (1 of 2) 2015 Influenza Vaccine (#1) 2025 Prostate Cancer Screening-PSA 04/13/2026 04/13/2024 Colon Cancer Screening-Colonoscopy 11/14/20342024 Hepatitis B Screening Completed 07/12/2024 Hepatitis C Screening Completed 07/12/2024 Pneumococcal vaccine <65 Aged Out No longer eligible based on patient's age to complete this topic Procedures Procedure Name Priority Date/Time Associated Diagnosis [...] AM CDT Nephrolithiasis COLONOSCOPY 11/14/2024 10:31 AM CASCARA BARK CUTTER HEPATITIS C ANTIBODY Routine 07/12/2024 3:39 PM [...] Electronically signed by: Jerzy Lo MD, Ph.D Stanley Cowart MD [facility] [place] [place] PROCEDURES Final Result * (ABNORMAL) [facility]olink [...] - 03/29/2025 1:07 AM CDT Performed at: [facility] [id number] Education Research Analyst: Dimitrios Wiley PhD, Phone: [phone] us Stanley Cowart MD LAB URINE ORDERABLES Kahlil john Result - Final [facility] - 01 * (ABNORMAL) [facility]ink 24Hr Urine Panel [...] [facility] - 01 Comment Note [facility] - Comment: The report contained on accession [id number] and [id number] is the same. Urine 03/23/2025 5:25 AM CDT 03/25/2025 Narrative [facility] - 03/29/2025 1:07 AM CDT Performed at: [address] [id number] Education Research Analyst: Dimitrios Wiley PhD, Phone: [phone] us Stanley Cowart MD LAB URINE ORDERABLES Kahlil john Result - Final [facility] * eGFR (03/21/2025 2:50 PM CDT) eGFR [...] LAB BL OOD ORDERABLES Final Result J[facility] [address] Department [place] [address] * Differential, auto (03/21/2025 2:50 PM CDT) Neutrophil abs 2.85 1.50 - 6.50 K/cumm Imm gran abs 0.01 0.00 - 0.10 K/cumm [facility] Lymphocyte abs 1.49 0.80 - 3.30 K/cumm [facility] Monocyte abs 0.49 0.20 - 0.80 K/cumm [facility] Eosinophil abs 0.32 0.00 - 0.50 K/cumm [facility] Basophil abs 0.04 0.00 - 0.10 K/cumm [facility] Neutrophil pct 54.7 % [facility] Comment: Interpretive Data Percent cell count reference ranges are not reported, since discordance with absolute values may lead to misinterpretation of CBC data. Current Interpretive Data was last revised on 2017. Imm gran pct 0.2 % [facility] Comment: Interpretive Data Percent cell count reference ranges are not reported, since discordance with absolute values may lead to misinterpretation of CBC data. Current Interpretive Data was last revised on 2017. Lymphocyte pct 28.7 % [facility] Comment: Interpretive Data Percent cell count reference ranges are not reported, since discordance with absolute values may lead to misinterpretation of CBC data. Current Interpretive Data was last revised on 2017. Monocyte pct 9.4 % [facility] Comment: Interpretive Data Percent cell count reference ranges are not reported, since discordance with absolute values may lead to misinterpretation of CBC data. Current Interpretive Data was last revised on 2017. Eosinophil pct 6.2 % [facility] Comment: Interpretive Data Percent cell count reference ranges are not reported, since discordance with absolute values may lead to misinterpretation of CBC data. Current Interpretive Data was last revised on 2017. Basophil pct 0.8 % [facility] Comment: Interpretive Data Percent cell count reference ranges are not reported, since discordance with absolute values may lead to misinterpretation of CBC data. Current Interpretive Data was last revised on 2017. Blood 03/21/2025 2:50 PM CDT 03/21/2025 7:13 PM CDT Wanda Muñoz MD LAB BL OOD ORDERABLES Final Result [facility] [address] [place] [address] * (ABNORMAL) CBC with auto differential (03/21/2025 2:50 PM CDT) WBC 5.20 3.80 - 9.90 K/cumm Hgb 15.6 13.0 - 17.5 g/dL [facility] Hct 49.0 38.9 - 50.3 % [facility] Plt 202 150 - 400 K/cumm [facility] MPV 10.5 9.1 - 12.3 fL [facility] RBC 5.79 4.30 - 5.80 M/cumm [facility] MCV 84.6 81.3 - 96.4 fL [facility] MCH 26.9(L) 27.1 - 33.3 pg [facility] MCHC 31.8(L) 32.3 - 35.7 g/dL [facility] RDW CV 13.6 11.1 - 14.9 % [facility] RDW SD 42.1 35.7 - 48.1 fL [facility] NRBC abs 0.00 0.00 - 0.01 K/cumm [facility] Blood 03/21/2025 2:50 PM CDT 03/21/2025 7:13 PM CDT Wanda Muñoz MD LAB BL OOD ORDERABLES Final Result Performing Organization Address City/[facility]/ZIP Co de Phone Number [facility] [address] [place] [address] * Erythrocyte sedimentation rate (03/21/2025 2:50 PM CDT) Pathologist [facility] Erythrocyte sedimentation rate 12 1 - 20 mm/hr Blood 03/21/2025 2:50 PM CDT 03/21/2025 7:13 PM CDT Wanda Muñoz MD LAB BL OOD ORDERABLES Final Result Performing Organization Address City/[facility] Co de Phone Number JEN GR[facility] [address] [place] [address] * CRP (acute phase) (03/21/2025 2:50 PM CDT) [facility] CRP <3.0 <=10.0 mg/L Blood 03/21/2025 2:50 PM CDT 03/21/2025 7:13 PM CDT Wanda Muñoz MD LAB BL OOD ORDERABLES Final Result Performing Organization Address [facility] de Phone Number JEN GRU[facility] [address] [place] [address] * Comprehensive metabolic panel (03/21/2025 2:50 PM CDT) Pathologist [facility] Sodium 142 135 - 145 mmol/L Potassium, pl 3.9 3.3 - 4.9 mmol/L [facility] Chloride 104 97 - 110 mmol/L [facility] CO2 28 22 - 32 mmol/L [facility] Anion gap 10 2 - 15 mmol/L [facility] BUN 18 6 - 25 mg/dL [facility] Creatinine 1.10 0.80 - 1.30 mg/dL [facility] Glucose 106 70 - 199 mg/dL [facility] Comment: Interpretive Data Fasting glucose >/= 126 [...] classification and Diagnosis of Diabetes Diabetes Care 2021; 46: S19-S40. Current interpretive data was last [...] MD LAB BL OOD ORDERABLES Final Result [facility] [address] Department [place] [address] * US Kidney Complete (03/13/2025 8:09 AM [...] by: Leonel Crespo M.D. Stanley Cowart MD [facility] [place] US PROCEDURES Final Result * Colonoscopy (11/14/2024 10:31 AM CASCARA BARK CUTTER) Anatomical Region Laterality Modality Other Narrative Procedure Note Malcolm Juarez MD - 11/14/2024 10:31 AM CST [facility] ENDOS[facility] Patient Name: Avtar Vizcarra Procedure Date: 11/14/2024 10:31 AM Date of : 1965 Admit Type: Outpatient Age: 59 Gender: Male Attending MD: Malcolm Juarez M.D. Room: [facility] ENDOSCOPY ROOM 4 Note Status: Finalized Procedure: [...] The scope was passed under direct vision.The [id number] endoscope was introduced through the anus and advanced to the cecum, identified by appendiceal orifice and ileocecal valve. The colonoscopy was performed without difficulty. The patient tolerated the procedure well. The qualityof the bowel preparation was evaluated using the BBPS ([place] Bowel Preparation Scale) with scores of:Right Colon [...] Hep C Ab NON-REACTI VE NON-REACT AVANI [facility] Comment: HCV antibody was non-reactive. There is no laboratory evidence of HCV infection. In most cases, no further action is required. However, if recent HCV exposure is suspected, a test for HCV RNA (test code 86172) is suggested. For additional information please refer to http://education.Real Matters.com/faq/XXX20m3 (This link is being provided for informational/ educational purposes only.) Blood 07/12/2024 3:39 PM CDT 07/12/2024 3:39 PM CDT Wanda Muñoz MD LAB MICROBIOLOGY - GENERAL ORDERABLES Final Result [facility] [address] [id number] * PSA screen (04/13/2024 11:26 AM CDT) PSA 2.7 0.0 - 4.0 ng/mL [facility] - 01 Comment: Graeme ECLIA methodology. According to the [place] [employer], Serum PSA should decrease and [...] - 04/14/2024 8:19 AM CDT Performed at: [facility] [id number] Education Research Analyst: Hilario Coronado PhD, Phone: [phone] Mikael Gordon MD LAB BLOOD ORDERABLES Final Re sult [facility] - 01 from Last 3 Months or Most Recently Relevant to Health Maintenance Insurance [facility] CHOICE PLUS CHOICE PLUS CHOICE PLUS Care Teams Patient Access Associate Relationship Specialty Start Date End Date Mikael Gordon MD PCP - General Internal Medicine 04/13/24
--- OUTSIDE RECORDS SUMMARY | 2025-04-07 14:28 | XMS_ITS | Continuity of Care Document ---
Author Organization [facility] Address [address] [facility] [facility] [place] [address] Phone Care Team Providers Care Scroll Assembler Name Role Phone Derik José MD Unavailable Unavailable Allergies, Adverse Reactions, Alerts Substance Reaction Status Criticality No Known Allergies Active No Inform ation Medications Medication Instructions Dosage Effective Dates (start - stop) Status Comments HYDROCHLOROTHIAZIDE TABS 25MG TAKE 1 TABLET DAILY - Active SERTRALINE HCL TABS 100MG TAKE 2 TABLETS DAILY - Active CARVEDILOL (IR) TABS 25MG TAKE 1 TABLET TWICE A DAY WITH FOOD - Active AMLODIPINE BESYLATE TABS 10MG TAKE 1 TABLET DAILY - Active LISINOPRIL TABS 40MG TAKE 1 TABLET DAILY - Active potassium citrate ER 10 mEq (1,080 mg) tablet,extended release take 2 tablet by oral route 2 times every day 20 MEQ - Active Enbrel 50 mg/mL (1 mL) subcutaneous syringe inject 1 milliliter by subcutaneous route every week 50 MG - Active leflunomide 20 mg tablet take 1 tablet b y oral route every day 20 MG - Active Vitamin B-6 100 mg tablet take 1 tablet by oral route every day 1 tablet - Active Vitamin D3 5000 IU 125mg ORAL CAPSULE take 1 tablet by oral route every day - Active Fish Oil 1,200 mg (144 mg-216 mg) capsule take 3 capsule by oral route every morning 3 capsule - Active niacin 500 mg tablet take 1 tablet by oral route every day 500 MG - Active ibuprofen 200 mg tablet take 1 - 4 table t by oral route every 8 hours with food as needed 200 MG - Active acetaminophen 500 mg tablet take 2 Tablet by oral route 6 times every day as needed not to exceed 8 tablets per 24hrs - Active zinc 50 mg tablet take 1 tablet by oral route every day - Active Procedures Procedure Date PREV VISIT EST AGE 40-64 Scrning perf and negative SYST BP GE 130 - 139MM HG DIAST BP 80-89 MM HG ROUTINE VENIPUNCTURE EXC TR-EXT B9+JOSE 1.1-2 CM SARSCOV & INF VIR A&B AG IA OFFICE/OUTPATIENT VISIT EST OFFICE/OUTPATIENT VISIT EST SYST BP GE 130 - 139MM HG DIAST BP < 80 MM HG OFFICE/OUTPATIENT VISIT EST SYST BP LT 130 MM HG DIAST BP < 80 MM HG OFFICE/OUTPATIENT VISIT EST SYST BP LT 130 MM HG DIAST BP < 80 MM HG PREV VISIT EST AGE 40-64 Scrning perf and negative SYST BP GE 130 - 139MM HG DIAST BP < 80 MM HG OFFICE/OUTPATIENT VISIT EST SYST BP GE 130 - 139MM HG DIAST BP 80-89 MM HG ROUTINE VENIPUNCTURE OFFICE/OUTPATIENT VISIT EST OFFICE/OUTPATIENT VISIT EST INJECTION SMALL JOINT BETAMETHASONE ACETSOD PHOSP (3 MG) OFFICE/OUTPATIENT VISIT NEW OFFICE/OUTPATIENT VISIT EST X-RAY EXAM OF FINGER(S) ROUTINE VENIPUNCTURE EXC TR-EXT B9+JOSE 1.1-2 CM SURGICAL TRAYS POSTOP FOLLOW-UP VISIT POSTOP FOLLOW-UP VISIT POSTOP FOLLOW-UP VISIT OFFICE/OUTPATIENT VISIT EST Scrning perf and negative POSTOP FOLLOW-UP VISIT ELECTROCARDIOGRAM REPORT LAP ING HERNIA REPAIR INIT LAP ING HERNIA REPAIR INIT LAP VENT/ABD YASMEEN PROC COMP OFFICE/OUTPATIENT VISIT NEW PREV VISIT EST AGE 40-64 Scrning perf and negative ROUTINE VENIPUNCTURE OFFICE/OUTPATIENT VISIT EST Scrning perf and negative OFFICE/OUTPATIENT VISIT NEW Scrning perf and negative Advance Directives Directive Yes / No Effective Date File Name No Information Encounters Encounter Description Practice Location Reason(s) For Visit Diagnoses Date Provider Providers Copied on Encounter [facility], [address], [place], [place], [address], tel:[phone] [facility] No Information 5 Estefanía More. [address], [address], [place], [place], [address] , [place]. tel: [phone] [facility], [address], [place], [place], [address], [place] tel:[phone] [facility] No Information 5 Estefanía More. [address], [address], [place], [place], [address] , [place]. tel: [phone] [facility], [address], [place], [place], [address], tel:[phone] [facility] No Information 4 Estefanía More. [address], [address], [place], [place], [address] , [place]. tel: [phone] [facility], [address], [place], [place], [address], [place] tel:[phone] [facility] No Information 4 Estefanía More. [address], [address], [place], [place], [address] , [place]. tel: [phone] PREV VISIT EST AGE 40-64 [facility], [address], [place], [place], [address], [place] tel:[phone] [facility] Preventive exam (chief complaint) Encounter for general adult medical examination without abnormal findingsBody mass index (BMI) 26.0-26.9, adultEssenti al (primary) hypertension Encounter for screening, unspecified 4 Estefanía More. [address], [address], [place], [place], [address] , [place]. tel: [phone] Referring Provider: Derik José MD W, [address], [place], [address]. tel:[phone] [facility], [address], [place], [place], [address], [place] tel:[phone] [facility] Encntr for general adult medical exam w/o abnormal findings 4 Estefanía More. [address], [address], [place], [place], [address] , [place]. tel: [phone] Referring Provider: Derik Blackwell, [address], [place], [address]. tel:[phone] [facility], [address], [place], [place], [address], [place] tel:[phone] [facility] skin tag/bump (chief complaint) Body mass index (BMI) 26.0-26.9, adultEpiderm al cystEssentia l (primary) hypertension 4 Estefanía More. [address], [address], [place], [place], [address] , [place]. tel:[phone] Referring Provider: Derik José MD W, [address], [place], [address]. tel:[phone] OFFICE/OUTPA TIENT VISIT EST [facility], [address], [place], [place], [address], [place] tel:[phone] [facility] Cold symptoms (chief complaint) Body mass index (BMI) 26.0-26.9, adultAcute upper respiratory infection 4 Estefanía More. [address], [address], [place], [place], [address] , [place]. tel:[phone] Referring Provider: Derik Blackwell, [address], [place], [address]. tel:[phone] OFFICE/OUTPA TIENT VISIT EST [facility], [address], [place], [place], [address], [place] tel:[phone] [facility] R rear shoulder lump (chief complaint) Body mass index (BMI) 27.0-27.9, adultNoduloc ystic acne 3 Estefanía More. [address], [address], [place], [place], [address] , [place]. tel: [phone] Referring Provider: Derik Blackwell, [address], [place], [address]. tel:[phone] OFFICE/OUTPA TIENT VISIT EST [facility], [address], [place], [place], [address], [place] tel:[phone] [facility] Follow Up of Hypertension (chief complaint)Fo llow Up of SOB (chief complaint)Re cent hernia surgery at (chief complaint) Body mass index (BMI) 25.0-25.9, adultAnxiety disorder, unspecifiedE ssential (primary) hypertension 3 Estefanía More. [address], [address], [place], [address] , [place]. tel: [phone] Referring Provider: Derik Blackwell, [address], [place], [address]. tel:[phone] OFFICE/OUTPA TIENT VISIT EST [facility], [address], [place], [place], [address], [place] tel:[phone] [facility] SOB (chief complaint) Body mass index (BMI) 26.0-26.9, adultSOB (shortness of breath)Anxie ty disorder, unspecified 3 Estefanía More. [address], [address], [place], [place], [address] , [place]. tel: [phone] Referring Provider: Derik Blackwell, [address], [place], [address]. tel:[phone] PREV VISIT EST AGE 40-64 [facility], [address], [place], [address], [place] tel:[phone] [facility] Preventive exam (chief complaint) Encounter for general adult medical examination without abnormal findingsBody mass index (BMI) 26.0-26.9, adultEssenti al (primary) hypertension Psoriatic arthritisEnc ounter for screening, unspecified 3 Estefanía More. [address], [address], [place], [place], [address] , [place]. tel: [phone] Referring Provider: Derik José MD W, [address], [place], [address]. tel:[phone] OFFICE/OUTPA TIENT VISIT EST [facility], [address], [place], [address], [place] tel:[phone] [facility] left shoulder pain (chief complaint) Body mass index (BMI) 26.0-26.9, adultCervica l disc disorder with radiculopath y, unspecified cervical region b0 3 Estefanía More. [address], [address], [place], [place], [address] , [place]. tel: [phone] Referring Provider: Derik Blackwell, [address], [place], [address]. tel:[phone] [facility], [address], [place], [address], [place] tel:[phone] [facility] Encntr for general adult medical exam w/o abnormal findings 0 3 Estefanía More. [address], [place], [address] , [place]. tel: [phone] Referring Provider: Derik Blackwell, [address], [place], [address]. tel:[phone] OFFICE/OUTPA TIENT VISIT [facility], [facility] [place], [place], [address], [place] tel:[phone] [place] [address] Orthopedics No Information 2 Pineda Vences. [address], [place], [place], [address] , [place]. tel: [phone] OFFICE/OUTPA TIENT VISIT [facility], [address] [place] [address], [id number], [place] tel:[phone] [place] [address] Orthopedics No Information 2 Pineda Vences. [facility], [place], [place], [address] , [place]. tel: [phone] OFFICE/OUTPA TIENT VISIT [facility], [address] [place] [address], [id number], [place] tel:[phone] [place] [address] Orthopedics No Information 2 Pineda Vences. [facility], [place], [place], [address] , [place]. tel: [phone] [facility], [address], [place], [place], [address], [place] tel:[phone] [facility] Swelling of left index finger 2 Estefanía More. [address], [place], [address] , [place]. tel: [phone] OFFICE/OUTPA TIENT VISIT EST [facility], [address], [place], [address], [place] tel:[phone] [facility] L hand swelling & trouble bending it (chief complaint)sp ots on back of head (chief complaint)quintanilla d abd CT 5-20 ordered by Uro (chief complaint) Swelling of left index fingerInguin al hernia, left Isaiah-0 2 Estefanía More. [address], [place], [place], [address] , [place]. tel: [phone] Referring Provider: Derik José MD W, [address], [place], [address]. tel:[phone] [facility], [address], [place], [place], [address], [place] tel:[phone] [facility] excision (chief complaint)de clines COVID & Flu vacc (chief complaint) Body mass index (BMI) 25.0-25.9, adultEpiderm al cyst Aug- 1 Estefanía More. [address], [place], [place], [address] , [place]. tel: [phone] Referring Provider: Derik José MD W, [address], [place], [address]. tel:[phone] [facility], [address] [place] [address], [id number], tel:[phone] [facility] Post-Op (chief complaint) Non-recurren t bilateral inguinal hernia without obstruction or gangrene 1 Maribell Schwartz. [facility] [address] [place] [address], [address] , [place]. tel: [phone] [facility], [address] [place] [address], [id number], [place] tel:[phone] [facility] Post-Op (chief complaint) Non-recurren t bilateral inguinal hernia without obstruction or gangrene 1 Maribell Schwartz. [facility] [address], [place], [place], [address] , [place]. tel: [phone] [facility], [address] [place] [address], [id number], [place] tel:[phone] [facility] Post-Op (chief complaint) Non-recurren t bilateral inguinal hernia without obstruction or gangrene 1 Maribell Schwartz. [address], [place], [place], [address] , [place]. tel: [phone] OFFICE/OUTPA TIENT VISIT EST [facility], [address], [place], [place], [address], [place] tel:[phone] [facility] vertigo (chief complaint) Body mass index (BMI) 25.0-25.9, adultEssenti al (primary) hypertension Encounter for screening, unspecified 1 Estefanía More. [address], [place], [place], [address] , [place]. tel:[phone] Referring Provider: Derik José MD W, [address], [place], [address]. tel:[phone] [facility], [address] [place] [address], [id number], [place] [phone] [facility] Post-Op (chief complaint) Non-recurren t bilateral inguinal hernia without obstruction or gangreneUmbi lical hernia without obstruction and without gangrene 1 Maribell Schwartz. [address], [place], [place], [address] , [place]. tel: [phone] [facility], [address], [place], [place], [address], [place] tel:[phone] [facility] No Information 1 Estefanía More. [address], [place], [place], [address] , [place]. tel:[phone] [facility], [address], [place], [place], [address], [place] tel:[phone] [facility] No Information 1 Roddy Coffey . [address], [address], [place], [place], [address] , [place]. tel:[phone] Referring Provider: Jasiel Acuan DO, [address] [place], [address]. tel:[phone] [facility], [address] [place], [place], [address], [place] tel:[phone] [facility] No Information 1 Maribell Schwartz. [address], [place], [place], [address] , [place]. tel:[phone] Referring Provider: Efren Reyna MD, [address], [place], [address]. tel:[phone] OFFICE/OUTPA TIENT VISIT [facility], [address] [place], [place], [address], [place] tel:[phone] [facility] Inguinal Hernia (chief complaint) Umbilical hernia without obstruction and without gangreneNon- recurrent bilateral inguinal hernia without obstruction or gangrene 1 Maribell Schwartz. [address], [place], [place], [address] , [place]. tel:[phone] Referring Provider: Derik José MD W, [address], [place], [address]. tel:[phone] PREV VISIT EST AGE 40-64 [facility], [address], [place], [place], [address], [place] tel:[phone] [facility] Preventive exam (chief complaint)de clines COVID vacc (chief complaint) Encounter for general adult medical examination without abnormal findingsBody mass index (BMI) 27.0-27.9, adultSleep apnea, unspecifiedE ssential (primary) hypertension Anxiety disorder, unspecifiedI nguinal hernia of left side without obstruction or gangreneEnco unter for screening, unspecified 1 Estefanía More. [address], [place], [place], [address] , [place]. tel: [phone] Referring Provider: Derik José MD W, [address], [place], [address]. tel:[phone] [facility], [address], [place], [address], [place] tel:[phone] [facility] Sleep apnea, unspecified 1 Estefanía More. [address], [place], [place], [address] , [place]. tel: [phone] OFFICE/OUTPA TIENT VISIT [facility], [address], [place], [place], [address], [place] tel:[phone] [facility] Follow Up of anxiety (chief complaint) Body mass index (BMI) 27.0-27.9, adultEssenti al (primary) hypertension Encounter for screening, unspecifiedS leep apnea, unspecifiedA nxiety disorder, unspecifiedS TD exposureIngu inal hernia of left side without obstruction or gangrene 1 Estefanía More. [address], [place], [place], [address] , [place]. tel: [phone] Referring Provider: Derik José MD W, [address], [place], [address]. tel:[phone] OFFICE/OUTPA TIENT VISIT NEW [facility], [address], [place], [address], [place] tel:[phone] [facility] hypertension (chief complaint) Body mass index (BMI) 27.0-27.9, adultEssenti al (primary) hypertension Anxiety disorder, unspecifiedE ncounter for screening, unspecified Nov- Estefanía More. [address], [place], [place], [address] , [place]. tel:[phone] Referring Provider: Derik José MD W, [address], [place], [address]. tel:[phone] Family History Family Member Type Diagnosis Age At Onset Brother Problem hypertension Mother Problem Alive and well Brother Problem Alive and well Father Problem hypertension Father Problem Alive and well Payers Payer name Insurance type Covered republican ID Authordixon feldman(s) BCBS of Attn Claims Dept [id number] Social History Type Description Quantity Date Captured Comments Alcohol Use Details Unknown Caffeine Use Details Unknown Tobacco Use Status No Information Smoking Status No Information Sex Male Chief Complaint And Reason For Visit No Information Reason For Referral Reason For Referral No Information Plan Of Treatment Date Type Action Status Goal ECG due Goal Urinalysis. Due on 25 due Goal Influenza vaccine. Due on due Goal Hepatitis C screening. Due o n due Goal FIT-DNA. Due on due Goal CT-Colonography. Due on due Goal FOBT. Due on due Goal Sigmoidoscopy. Due on due Goal FIT. Due on due Goal Colonoscopy. Due on 025 due Goal Tobacco screening. Due on due Goal Tdap. Due on due Goal Zoster vaccine (). Due on due Goal Depression screening. Due on due Goal Td vaccine. Due on due Goal Urinalysis. Due on due Goal ECG due Goal FOBT. Due on due Goal Tdap. Due on due Goal Td vaccine. Due on due Goal CT-Colonography. Due on due Goal Hepatitis C screening. Due o n due Goal Influenza vaccine. Due on due Goal Sigmoidoscopy. Due on due Goal Colonoscopy. Due on due Goal Depression screening. Due on due Goal FIT-DNA. Due on due Goal Zoster vaccine (). Due on due Goal FIT. Due on due Goal ECG due Goal Urinalysis. Due on due Goal CT-Colonography. Due on due Goal Sigmoidoscopy. Due on due Goal Colonoscopy. Due on due Goal Hepatitis C screening. Due o n due Goal Tdap. Due on due Goal FOBT. Due on due Goal FIT. Due on due Goal Depression screening. Due on due Goal Td vaccine. Due on due Goal Influenza vaccine. Due on due Goal FIT-DNA. Due on due Goal Zoster vaccine (). Due on due Goal FIT-DNA. Due on due Goal Hepatitis C screening. Due o n due Goal CT-Colonography. Due on due Goal FIT. Due on due Goal ECG due Goal Urinalysis. Due on due Goal Sigmoidoscopy. Due on due Goal FOBT. Due on due Goal Tdap. Due on due Goal Td vaccine. Due on due Goal Zoster vaccine (). Due on due Goal Colonoscopy. Due on due Goal Depression screening. Due on due Goal Influenza vaccine. Due on due Goal ECG due Goal Urinalysis. Due on due Goal Tdap. Due on due Goal FOBT. Due on due Goal Sigmoidoscopy. Due on due Goal Influenza vaccine. Due on due Goal Hepatitis C screening. Due o n due Goal FIT-DNA. Due on due Goal Depression screening. Due on due Goal CT-Colonography. Due on due Goal Td vaccine. Due on due Goal FIT. Due on due Goal Zoster vaccine (). Due on due Goal Colonoscopy. Due on 024 due Goal Urinalysis. Due on due Goal ECG due Goal Td vaccine. Due on due Goal FOBT. Due on due Goal FIT-DNA. Due on due Goal FIT. Due on due Goal CT-Colonography. Due on due Goal Zoster vaccine (). Due on due Goal Influenza vaccine. Due on due Goal Depression screening. Due on due Goal Hepatitis C screening. Due o n due Goal Tdap. Due on due Goal Sigmoidoscopy. Due on due Goal Colonoscopy. Due on 023 due Goal ECG due Goal Urinalysis. Due on due Goal Sigmoidoscopy. Due on due Goal Influenza vaccine. Due on due Goal Hepatitis C screening. Due o n due Goal CT-Colonography. Due on due Goal Zoster vaccine (1st). Due on due Goal Td vaccine. Due on due Goal Colonoscopy. Due on 023 due Goal FOBT. Due on due Goal FIT-DNA. Due on due Goal FIT. Due on due Goal Tdap. Due on due Goal Depression screening. Due on due Goal Urinalysis. Due on due Goal ECG due Goal Depression screening. Due on due Goal Tdap. Due on due Goal FIT. Due on due Goal FIT-DNA. Due on due Goal FOBT. Due on due Goal Colonoscopy. Due on due Goal Td vaccine. Due on due Goal Zoster vaccine (1st). Due on due Goal CT-Colonography. Due on due Goal Hepatitis C screening. Due o n due Goal Influenza vaccine. Due on due Goal Sigmoidoscopy. Due on due Goal ECG due Goal Urinalysis. Due on due Goal Colonoscopy. Due on 023 due Goal FIT-DNA. Due on due Goal Zoster vaccine (). Due on due Goal Tdap. Due on due Goal Influenza vaccine. Due on due Goal Hepatitis C screening. Due o n due Goal Depression screening. Due on due Goal FIT. Due on due Goal CT-Colonography. Due on due Goal FOBT. Due on due Goal Sigmoidoscopy. Due on due Goal Td vaccine. Due on due Goal ECG due Goal Urinalysis. Due on due Goal Influenza vaccine. Due on due Goal CT-Colonography. Due on due Goal Tdap. Due on due Goal Zoster vaccine (). Due on due Goal Td vaccine. Due on due Goal Sigmoidoscopy. Due on due Goal Colonoscopy. Due on 023 due Goal Hepatitis C screening. Due o n due Goal Depression screening. Due on due Goal FIT-DNA. Due on due Goal FIT. Due on due Goal FOBT. Due on due Goal Urinalysis. Due on due Goal ECG due Goal Sigmoidoscopy. Due on due Goal Influenza vaccine. Due on due Goal Td vaccine. Due on due Goal FOBT. Due on due Goal FIT-DNA. Due on due Goal CT-Colonography. Due on due Goal Tdap. Due on due Goal Colonoscopy. Due on 023 due Goal Hepatitis C screening. Due o n due Goal FIT. Due on due Goal Zoster vaccine (). Due on due Goal Depression screening. Due on due Goal ECG due Goal Urinalysis. Due on due Goal Tdap. Due on due Goal Sigmoidoscopy. Due on due Goal Td vaccine. Due on due Goal Zoster vaccine (). Due on due Goal Cologuard. Due on due Goal FOBT. Due on due Goal Colonoscopy. Due on due Goal Depression screening. Due on due Goal Influenza vaccine. Due on due Goal Urinalysis. Due on due Goal ECG due Goal Influenza vaccine. Due on due Goal Td vaccine. Due on due Goal Tdap. Due on due Goal Colonoscopy. Due on due Goal FOBT. Due on due Goal Sigmoidoscopy. Due on due Goal Cologuard. Due on due Goal Depression screening. Due on due Goal Zoster vaccine (). Due on due Goal Urinalysis. Due on due Goal ECG due Goal Zoster vaccine (). Due on due Goal Colonoscopy. Due on due Goal Depression screening. Due on due Goal Sigmoidoscopy. Due on due Goal Cologuard. Due on due Goal FOBT. Due on due Goal Tdap. Due on due Goal Influenza vaccine. Due on due Goal Td vaccine. Due on due Goal Urinalysis. Due on due Goal ECG due Goal Influenza vaccine. Due on due Goal Colonoscopy. Due on due Goal Depression screening. Due on due Goal Cologuard. Due on due Goal FOBT. Due on due Goal Td vaccine. Due on due Goal Zoster vaccine (). Due on due Goal Tdap. Due on due Goal Sigmoidoscopy. Due on due Goal ECG due Goal Urinalysis. Due on due Goal Colonoscopy. Due on due Goal Influenza vaccine. Due on due Goal Depression screening. Due on due Goal Cologuard. Due on due Goal Tdap. Due on due Goal Sigmoidoscopy. Due on due Goal Td vaccine. Due on due Goal Zoster vaccine (). Due on due Goal FOBT. Due on due Goal Tdap. Due on due Goal Sigmoidoscopy. Due on due Goal Zoster vaccine (). Due on due Goal ECG due Goal Urinalysis. Due on due Goal Cologuard. Due on due Goal FOBT. Due on due Goal Influenza vaccine. Due on due Goal Colonoscopy. Due on due Goal Td vaccine. Due on due Goal Depression screening. Due on due Goal ECG. Due on due Goal Urinalysis. Due on due Goal FOBT. Due on due Goal Cologuard. Due on due Goal Influenza vaccine. Due on due Goal Tdap. Due on due Goal Sigmoidoscopy. Due on due Goal Td vaccine. Due on due Goal Zoster vaccine (). Due on due Goal Depression screening. Due on due Goal Colonoscopy. Due on due Goal Td vaccine. Due on due Goal Sigmoidoscopy. Due on due Goal FOBT. Due on due Goal Tdap. Due on due Goal Urinalysis. Due on due Goal ECG. Due on due Goal Influenza vaccine. Due on due Goal Zoster vaccine (). Due on due Goal Colonoscopy. Due on due Goal Cologuard. Due on due Goal Depression screening. Due on due Goal Depression screening. Due on due Goal Tdap. Due on due Goal Cologuard. Due on due Goal Td vaccine. Due on due Goal Influenza vaccine. Due on due Goal Colonoscopy. Due on due Goal Zoster vaccine (). Due on due Goal FOBT. Due on due Goal Sigmoidoscopy. Due on due Goal ECG. Due on due Goal Urinalysis. Due on due Goal ECG. Due on due Goal Urinalysis. Due on due Goal FOBT. Due on due Goal Depression screening. Due on due Goal Td vaccine. Due on due Goal Colonoscopy. Due on due Goal Sigmoidoscopy. Due on due Goal Influenza vaccine. Due on due Goal Zoster vaccine (). Due on due Goal Tdap. Due on due Goal ECG. Due on due Goal Urinalysis. Due on due Goal Tdap. Due on due Goal FOBT. Due on due Goal Zoster vaccine (1st). Due on due Goal Influenza vaccine. Due on due Goal Td vaccine. Due on due Goal Colonoscopy. Due on due Goal Sigmoidoscopy. Due on due Goal Depression screening. Due on due Goal ECG. Due on due Goal Urinalysis. Due on due Goal Tdap. Due on due Goal FOBT. Due on due Goal Depression screening. Due on due Goal Td vaccine. Due on due Goal Influenza vaccine. Due on due Goal Sigmoidoscopy. Due on due Goal Zoster vaccine (1st). Due on due Goal Colonoscopy. Due on due Goal Depression screening. Due on due Goal FOBT. Due on due Goal Influenza vaccine. Due on due Goal Sigmoidoscopy. Due on due Goal Zoster vaccine (1st). Due on due Goal Colonoscopy. Due on due Goal Tdap. Due on due Goal Urinalysis. Due on due Goal ECG. Due on due Goal Td vaccine. Due on due Goal ECG. Due on due Goal Urinalysis. Due on due Goal Zoster vaccine (1st). Due on due Goal Sigmoidoscopy. Due on due Goal Colonoscopy. Due on due Goal Td vaccine. Due on due Goal Lipid panel. Due on due Goal Tdap. Due on due Goal FOBT. Due on due Goal Depression screening. Due on due Goal Influenza vaccine. Due on Nd due Referral Referred To: Physical Therapy Ordered: Referral: Referral: Physical Therapy Physical Therapy. Evaluate and treat ordered Referral Referred To: REGINO Sung Ordered: Referral: Orthopedic Surgery. REGINO Sung. Location: . Evaluate and treat ordered Referral Referred To: caleb arredondo Ordered: Referral: Surgery. caleb arredondo. Location: [facility]. Evaluate and treat ordered Referral Ordered: Referral: Rheumatology. Evaluate and treat ordered Referral Referred To: Efren Reyna MD [address], [id number] Ordered: Referral: Surgery. Efren Reyna MD. Surgery ordered Referral Ordered: Referral: Surgery. Evaluate and treat ordered Patient Education Inguinal Hernia: After Your Visit completed History Of Present Illness Encounter Date Complaint History Of Prese nt Illness Comments: moved to [place], one month, cycling still Preventive exam Comments: wants re-excision right shoulder cyst, wedding is next month, states urology wants to increase HCTZ to 50mg, and start K citrate skin tag/bump right shoulder, has had removed before Cold symptoms Onset: 1 week ag o. Associated symptoms include cough, fever, nasal congestion and diarrhea. Additional information: Rapid COVID and Influenza all Negative. R rear shoulder lump BG removed it 2 years ago & now it has returned Comments: 3rd in guinal hernia repair 2 weeks ago, hopes to return to pickle ball and cycling Follow Up of SOB Comments: resolv ed after finished online relationship with girlfriend Comments: less e xercise with recent hernia surgery, still walking, no chest pain Recent hernia surgery at [facility] Follow Up of Hypertension SOB The symptoms beg an 2 weeks ago. Random not related to activity Denies any chest painRheum nurse told him not related to the Enbrel / has been on for 6 weeks now Comments: c/o SO B last 2 weeks, didn't interfer with hiking on vacation last week, c/o SOB driving in the car today, non exertional, felt low level anxiety, hard to get a few deep breaths, lasts only few seconds, feels similar sitting at desk at home, notices elevated BP in AM, sleeping with CPAP, had #3 hernia in april, had tried klonopin with some relief. Comments: improv ed pain in neck with PT. hernia and kidney stones, hopes to walking, and cycling. Preventive exam left shoulder pain Onset: 2 to 3 weeks ago. Location: left shoulder. Context: there is no injury. Comments: c/o 3 weeks, throbbing ache in left posterior shoulder to hand, no numbness or weakeness had abd CT 01-31 ordered by Edna tang Pt has called Edna Gabriel to get results 02-11-22 & no call back(report requested from [facility] 11:35) L hand swelling & tr ouble bending it (comments) had switched to left hand using mouse due to right tennis elbow , c/o left MCP pain and radiation to arm, L hand swelling & tr ouble bending it The symptoms began 3 weeks ago. Radiates up wrist no known injury spots on back of head The sympto ms began 2 years ago. Hairdresser told him they were inflamed declines COVID & Flu vacc excision excision (comments) h/o prior cy st excision on left posterior shoulder, had recent inguinal hernia and wants this cyst removed too. no drainage or bleeding Post-Op Additional infor vinnie: Follow-up today after drain removal last week. States he continued to do well. No worsening pain. Drain site with no drainage. No nausea or vomiting. Having bowel function. He also recently got the left kidney stone removed. Post-Op Post-Op (comments) Here for foll ow-up after clamping his drain on Thursday. The drain output the first day after increased slightly, but has since come down. Remains serous. He denies any abdominal pain. Tolerating diet. Post-Op Post-Op (comments) 56 y M who quintanilla d a robotic assisted umbilical and bilateral inguinal hernia repair on 07/17/21. Postop he was admitted on 07/27 with worsening abdominal pain, and was found to have an extraperitoneal fluid collection in the pelvis near the site of hernia repairs. Also had a left ureteral stone, obstructive for which urology placed a stent. He was admitted, and a drain was placed in the fluid collection on 07/31, which returned serous fluid. Cultures negative. His pain improved and he was discharged with the drain in place. Here for follow-up. Was seen last week and the drain output had been about 300 cc/day. Today he states that he is progressively been improving. Denies any significant abdominal pain. Drain output has been around 100 cc/day for the past few days. Remains serous. Denies fever/chills. Having regular bowel function and eating and drinking without issues. vertigo Onset was on . Additional information: lasted 3 days, patient states he had recent hernia surgery and had low blood pressure while at surgeons office Thursday08/13/21. vertigo (comments) c/o 4 days, room spinning, worse with standing , denies lightheaded , palpiations or syncope. had f/u with surgery Post-Op (comments) 56 y M who quintanilla d a robotic assisted umbilical and bilateral inguinal hernia repair on 07/17/21. Postop he was admitted on 07/27 with worsening abdominal pain, and was found to have an extraperitoneal fluid collection in the pelvis near the site of hernia repairs. Also had a left ureteral stone, obstructive for which urology placed a stent. He was admitted, and a drain was placed in the fluid collection on 07/31, which returned serous fluid. Cultures negative. His pain improved and he was discharged with the drain in place. Since discharge he states he has been having continued mild pain, but improving. Drain outputs have been 200-300ccs per day, serous. No issues with urination. Tolerating oral intake. No nausea/vomiting. Having regular bowel movements. Post-Op Inguinal Hernia Inguinal Hernia (comments) 55-ye ar-old male with a history of hypertension and anxiety who presents to the general surgery clinic referred by Dr. José for evaluation of a left inguinal hernia. He has noticed a bulge and occasional pain in the left groin for the past few years. The pain seems to get worse after standing for long periods of time. More recently as he has also noticed a small bulge in the right groin with occasional discomfort, less frequent than the left. He also notes pain and a small bulge at his umbilicus and thinks he has a hernia there as well. Previous surgeries significant for laparoscopic cholecystectomy. Preventive exam (comments) walki ng or cycling regularly., BP well controlled, no exertional chest pain. c.o some ankle swelling, back on full norvasc. Preventive exam declines COVID vacc Follow Up of anxiety Follow Up of anxiety (comments) was hiking on vacation, cycling 40 minutes sporadically. 1-2 times a week, 6-8 hours. using CPAP for 11 years. states home BP's stablestates rare 1-2 times a month, use of klonopin, states mood is stable hypertension Risk factors inc lude male gender. hypertension (comments) moved up 2 years to [facility], was driving to Dr Carter , in [facility] , had swelling, better since decreased amlodipine to 5mg. elevated readings noted today. denies chest pain or leg swelling Functional Status Date Functional Assessmen t No Information Instructions Date Instruction Additional Infor vinnie coronary artery dise ase prevention and cancer screening discussed. 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 regular exercise, prayer and meditation recommended.f/u one month Related to SOB (shortness of breath) Weight monitoring Related to Bod y mass index (BMI) 26.0-26.9, adult coronary artery dise ase prevention and cancer screening discussed. Related to Encounter for general adult medical examination without abnormal findings f/u 6 months Whole f ood, plant-based diet discussed. 30 minutes moderate intensity exercise at least 4 times a week. Related to Essential (primary) hypertension Weight monitoring Related to Bod y mass index (BMI) 26.0-26.9, adult f/u 2 weeks for CPgabapentin Rel ated to Cervical disc disorder with radiculopathy, unspecified cervical region wants second opinion with another surgeon Related to Inguinal hernia, left await labs/xraystero id taperrheum consult Related to Swelling of left index finger hold amlodipine, con tinue other BP medsf/u 1 months or sooner if dizziness persistsawait drain removal and stone removal soon Related to Essential (primary) hypertension coronary artery dise ase prevention and cancer screening discussed. Related to Encounter for general adult medical examination without abnormal findings STD prevention reviewed Related to STD exposure Whole food, plant-ba sed diet discussed. 30 minutes moderate intensity exercise at least 4 times a week.f/u 6 months Related to Essential (primary) hypertension recommend surgeon co nsult evenutally, risk of incarceration reviewed Related to Inguinal hernia of left side without obstruction or gangrene stress management co unseling given. regular exercise, prayer and meditation recommended.medications refills Related to Anxiety disorder, unspecified increased coreg to 2 5 mg BIDf/u 2-3 months Related to Essential (primary) hypertension Assessments Type Assessment Date No Information Patient Care Teams Name Effective Dates (start - stop) Status Members No Information
--- OUTSIDE RECORDS SUMMARY | 2025-04-07 14:28 | XMS_ITS | Patient Health Record ---
Author Organization [facility], [facility] Address [address] [address] Care Team Providers Care Quality Consultant Name Role Phone Provider, Outside Primary Care Provider [phone] Reason For Referral No Information Medications Medication SIG (Take, Route, Frequency, Duration) Notes Start Date End Date Status Niacin 500 MG 1 tablet Orally Once a day for 30 day(s) Active clonazePAM 0.5 MG 1 tablet Orally once a day, PRN PRN Not-Taking Cipro 500 MG 1 tablet Orally every 12 hrs for 14 days originally sent to mail order pharmacy (not filled there) 06/15/2020 Not-Taking Multivitamins as directed Orally Active Carvedilol 12.5 MG as directed Orally Twice a day for 90 days Active Sertraline HCl 100 MG 2 tablet Orally Once a day for 90 days Per verbal order of provider Active Vitamin D3 2000 UNIT as directed Orally Active Lisinopril 40 MG 1 tablet Orally Once a day for 90 days Per verbal order of provider Active hydroCHLOROthiazide 12.5 MG 1 capsule in the morning Orally Once a day for 90 days Per verbal order of provider 06/15/2017 Active Vitamin B-6 100 MG 1 tablet Orally Once a day for 30 day(s) Active amLODIPine Besylate 5 MG 1 tablet Orally Once a day for 90 days Per verbal order of provider Active Fish Oil 1000 MG 1 capsule Orally Once a day Active Immunizations Vaccine Route Administration Date Status Comme nts Influenza DECLINED [id number] Unknown 09/27/2014 Refused Influenza Quad PF (3yrs+) 2018 0.5ml syringes Unknown 06/09/2018 Refused Patient declined Tdap (Adacel or Boostrix) IM Intramuscular 10/03/2015 Administered zzInfluenza Declined-DO NOT USE Unknown 06/15/2017 Refused Social History Tobacco Use: Social History Observation Description Date Details (start date - stop date) Never Smoker NA - NA Tobacco use other than smoking: Question Answer Notes Are you an other tobacco user? No Smoking Status: Question Answer Notes Patient is a never smoker Problems Problem Type SNOMED Code ICD Code Onset Dates Problem Status W/U Status Risk Notes Problem 58710328 ADITI (obstructive sleep apnea) (G47.33) Active confirmed Problem 68777689 Hematuria (R31.9) Active confirmed Problem 328689531 Left inguinal hernia (K40.90) Active confirmed Problem 44316907 Kidney stone (N20.0) Active confirmed Problem 00246791 Essential hypertension (I10) Active confirmed Problem 609998129 Dyslipidemia (E78.5) Active confirmed Problem 68872752 Snoring (R06.83) Active confirmed Problem 96023032 Acute bronchitis , unspecified (J20.9) Active confirmed Problem 83286194 Other chest pain (R07.89) Active confirmed Problem 05003686 Adjustment disorder with anxious mood (F43.22) Active confirmed Problem 48898690 Other fatigue (R53.83) Active confirmed Problem 580481640 Other acute back pain (M54.9) Active confirmed Problem 603219575 Lateral epicondylitis of elbow (M77.10) Active confirmed Problem 387805715 Elevated PSA (R97.20) Active confirmed Problem 04290404 Glucose intolerance (E74.39) Active confirmed Plan Of Treatment Future Test Test Name Order Date Statin [id number]* 09/15/2020 [id number]* 09/15/2020 Insurance Providers Payer Name Payer Address Payer Phone Subscriber Number Group Number Insured Name Patient Relationship to Insured Coverage Start Date Coverage End Date [employer] PPO [address] [place], [place] [id number] Avtar Vizcarra Self - patient is the insured 8 Medications Administered Medication Instructions Date of Administration Dosage Notes Lidocaine 1%, per mg 01/23/2016 50 mg Propofol, per mg 01/23/2016 340 mg zzGlycopyrrolate 01/23/2016 0.2 mg Medical (General) History Medical History History ICD Code LAST PHX: 05/30/20 [facility] HTN: 01/05/18 Hypertension depression sleep apnea anxiety Hx of kidney stones, recurring, 93, stin t [facility] 02/06/17 (0) Hep C: neg Surgical History Surgery Date(Month/Year) cholecystectomy 01/2006 kidney stone removal 05/1993 Colonoscopy 01/2016 Hospitalization History Reason Date(Month/Year) listed above
[2025-04-07] MEDS: ONDANSETRON INJ 4 MG/2 ML VIAL IV PUSH (14:30)
[2025-04-07] MEDS: LACTATED RINGERS 1,000 ML 999 ML IV CONT (14:30)
[2025-04-07 14:31] LABS: Add Urine Microscopic? NO; Appearance Urine Clear (Clear); Glucose Urine UA Negative (Negative); Leukocyte Esterase Ur Negative LEU/UL (Negative); Nitrate Urine Negative (Negative); Specific Grav Ur 1.012 (1.001-1.035)
[2025-04-07] MEDS: HYDROmorphone HCL INJ (*CRX) 2 MG/ML VIAL 0.5 MG IV PUSH (14:31)
--- NOTE | 2025-04-07 14:36 | ED.ABDPAIN ---
HPI - Abdominal Pain General Chief Complaint: Abdominal Pain <Stephany Finney MD - Last Filed: 04/08/25 10:22> Stated Complaint: abd pain <Stephany Finney MD - Last Filed: 04/08/25 10:22> Time Seen by Provider: 04/07/25 14:02 <Stephany Finney MD - Last Filed: 04/08/25 10:22> Source: patient, family and RN notes reviewed <Stephany Finney MD - Last Filed: 04/08/25 10:22> Mode of arrival: ambulatory <Stephany Finney MD - Last Filed: 04/08/25 10:22> Limitations: no limitations <Stephany Finney MD - Last Filed: 04/08/25 10:22> History of Present Illness HPI narrative: This is a 59 year old male who presents for evaluation of abdominal pain. He states this morning he was doing fine and he developed lower abdominal pain after eating oatmeal. He states his pain has been constant and gradually worsening. Pain started in lower abdominal and now it is all over. He denies associated back pain. He reports history of kidney stones but this pain feels different. He has nausea but no vomiting at this point, and he reports having normal Bowel movement this morning. He rate his pain 8/10. <Stephany Finney MD - Last Filed: 04/08/25 10:22> MD elicited complaint: abdominal pain <Stephany Finney MD - Last Filed: 04/08/25 10:22> Pain Consistency: constant <Stephany Finney MD - Last Filed: 04/08/25 10:22> Location: diffuse <Stephany Finney MD - Last Filed: 04/08/25 10:22> Related Data Allergies/Adverse Reactions: Allergies Allergy/AdvReac Type Severity Reaction Status Date / Time No Known Allergies Allergy Verified 04/07/25 13:37 <Stephany Finney MD - Last Filed: 04/08/25 10:22> [facility] Past Medical History Medical History: Medical History (Updated 04/08/25 @ 00:00 by Background Daemon) Kidney stones <Stephany Finney MD - Last Filed: 04/08/25 10:22> Surgical History Surgical History: Surgical History (Updated 04/07/25 @ 14:36 by Stephany Finney MD) H/O hernia repair Hx of cholecystectomy <Stephany Finney MD - Last Filed: 04/08/25 10:22> Social History Social History: Social History (Updated 04/07/25 @ 14:37 by Stephany Finney MD) Smoking status: Never smoker <Stephany Finney MD - Last Filed: 04/08/25 10:22> Exam Const: General: no acute distress and alert <Stephany Finney MD - Last Filed: 04/08/25 10:22> Nutritional Appearance: well nourished <Stephany Finney MD - Last Filed: 04/08/25 10:22> Orientation/consciousness: patient oriented x3 <Stephany Finney MD - Last Filed: 04/08/25 10:22> HENMT: Head: normal to inspection <Stephany Finney MD - Last Filed: 04/08/25 10:22> Throat: uvula midline <Stephany Finney MD - Last Filed: 04/08/25 10:22> Eyes: EOM: EOMs intact bilaterally <Stephany Finney MD - Last Filed: 04/08/25 10:22> Resp: Effort & Inspection: normal respiratory effort <Stephany Finney MD - Last Filed: 04/08/25 10:22> Cardio: Rate: regular rate <Stephany Finney MD - Last Filed: 04/08/25 10:22> Rhythm: regular rhythm <Stephany Finney MD - Last Filed: 04/08/25 10:22> Heart sounds: no murmurs <Stephany Finney MD - Last Filed: 04/08/25 10:22> GI: Inspection: distended <Stephany Finney MD - Last Filed: 04/08/25 10:22> GI Palp: Yes Soft to palpation, Yes Tenderness to palpation present (GI) (diffuse), Yes Guarding due to palpation present (GI) and No Rigid due to palpation <Stephany Finney MD - Last Filed: 04/08/25 10:22> Auscultation: absent bowel sounds <Stephany Finney MD - Last Filed: 04/08/25 10:22> Back/Spine/Pelvis: Back: no CVA tenderness <Stephany Finney MD - Last Filed: 04/08/25 10:22> Neuro: General: patient oriented x3, moves all extremities and CN's II-XI intact bilaterally <Stephany Finney MD - Last Filed: 04/08/25 10:22> Extrem: General: normal to inspection <Stephany Finney MD - Last Filed: 04/08/25 10:22> Psych: Mental Status: mental status grossly normal <Stephany Finney MD - Last Filed: 04/08/25 10:22> Affect: normal affect <Stephany Finney MD - Last Filed: 04/08/25 10:22> Attitude: cooperative <Stephany Finney MD - Last Filed: 04/08/25 10:22> Course Reevaluation(s) Reevaluation #1: Care turned over to Dr. Schulte. PAtient pending CT abdomen and pelvis. . He has received pain medication <Stephany Finney MD - Last Filed: 04/08/25 10:22> Date: 04/07/25 <Stephany Finney MD - Last Filed: 04/08/25 10:22> Time: 15:15 <Stehpany Finney MD - Last Filed: 04/08/25 10:22> Vital Signs Vital signs: Vital Signs Temperature 98.2 F 04/07/25 13:41 Pulse Rate 62 04/07/25 13:41 Respiratory Rate 16 04/07/25 13:41 Blood Pressure 158/97 H 04/07/25 13:41 Pulse Oximetry 99 04/07/25 13:41 Oxygen Delivery Room Air 04/07/25 13:41 Temperature 98.2 F 04/07/25 13:41 Pulse Rate 80 04/07/25 17:44 Respiratory Rate 18 04/07/25 17:44 Blood Pressure 143/87 H 04/07/25 17:44 Pulse Oximetry 96 04/07/25 17:44 Oxygen Delivery Room Air 04/07/25 14:06 <Stephany Finney MD - Last Filed: 04/08/25 10:22> Vital Signs Temperature 98.2 F 04/07/25 13:41 Pulse Rate 62 04/07/25 13:41 Respiratory Rate 16 04/07/25 13:41 Blood Pressure 158/97 H 04/07/25 13:41 Pulse Oximetry 99 04/07/25 13:41 Oxygen Delivery Room Air 04/07/25 13:41 Temperature 98.2 F 04/07/25 13:41 Pulse Rate 80 04/07/25 17:44 Respiratory Rate 18 04/07/25 17:44 Blood Pressure 143/87 H 04/07/25 17:44 Pulse Oximetry 96 04/07/25 17:44 Oxygen Delivery Room Air 04/07/25 14:06 <Gunner Schulte MD - Last Filed: 04/07/25 17:32> MDM - Abdominal Pain MDM Narrative Medical decision making narrative: PAtient presents with generalized abdominal pain. labs ordered in triage. I have ordered 1 liter LR , zofran 4 mg IV and Dilaudid 0.5 mg IV. He will also get CT abdomen and pelvis to assess. <Stephany Finney MD - Last Filed: 04/08/25 10:22> PAtient presents with generalized abdominal pain. labs ordered in triage. I have ordered 1 liter LR , zofran 4 mg IV and Dilaudid 0.5 mg IV. He will also get CT abdomen and pelvis to assess. PATIENT WAS SIGNED OUT TO ME AT SHIFT CHANGE WAITING FOR BLOOD WORKUP WHICH SHOWED NO SIGNIFICANT ABNORMALITY URINALYSIS SHOWED NO SIGNIFICANT ABNORMALITY CT ABDOMEN AND PELVIS WITH IV CONTRAST SHOWED ENLARGED PROSTATE CAUSING MILD LEFT HYDROURETER AND MODERATE HYDRONEPHROSIS, MULTIPLE FLUID FILLED DISTENDED LOOPS OF JEJUNUM OUR TEAM IN THE MID ABDOMEN, NONSPECIFIC, ENTERITIS DIAGNOSIS ABDOMINAL PAIN, LIKELY SECONDARY TO ENTERITIS, PROSTATIC ENLARGEMENT DISCHARGED ON L[place]AQU[place], FLAGYL FOLLOW-UP WITH ENVIRONMENTAL SERVICES LEAD, UROLOGIST THE PT WAS DISCHARGED TO HOME.THE PT,S CONDITION UPON DISCHARGE WAS FAIR,EDUCATION WAS PROVIDED TO THE PT IN REFERENCE TO THE FINAL IMPRESSION,DISCHARGE STUDY RESULTS,TREATMENT,PROGNOSIS AND NEED FOR FOLLOW UP . <Gunner Schulte MD - Last Filed: 04/07/25 17:32> Differential Diagnosis Differential diagnosis: Likely abdominal pain, acute appendicitis, calculus of kidney, constipation, diverticulitis, gastroenteritis, pancreatitis and small bowel obstruction <Stephany Finney MD - Last Filed: 04/08/25 10:22> Lab Data Attestation: I reviewed the patient's lab results. <Stephany Finney MD - Last Filed: 04/08/25 10:22> Result diagrams: 04/07/25 14:10 04/07/25 14:10 <Stephany Finney MD - Last Filed: 04/08/25 10:22> Labs: Lab Results 04/07/25 04/07/25 Range/Units 14:10 14:23 WBC 9.0 (4.5-10.0) K/mm3 RBC 5.78 (4.6-6.20) M/mm3 Hgb 15.7 (14.0-18.0) g/dL Hct 48.0 (42.0-52.0) % MCV 83.0 (80-100) fl MCH 27.2 (26-34) pg MCHC 32.7 (32-36) g/dl RDW 13.5 (11.5-14.5) % Plt Count 190 (150-375) k/mm3 MPV 10.1 (7.4-10.4) fl Immature Gran % (Auto) 0.2 (0-0.5) % Neut % (Auto) 81.5 H (45.5-73.1) % Lymph % (Auto) 9.8 L (18.3-44.2) % [place] % (Auto) 6.1 (2.6-8.5) % Eos % (Auto) 2.0 (0-4.4) % Baso % (Auto) 0.4 (0.2-1.2) % Lymph # (Auto) 0.88 L (0.9-3.2) K/mm3 [place] # (Auto) 0.6 (0.1-0.6) K/mm3 Eos # (Auto) 0.2 (0-0.3) K/mm3 Baso # (Auto) 0.0 (0.0-0.1) K/mm3 Abs Immat Gran (auto) 0.02 (0.00-0.031) K/mm3 Absolute Neuts (auto) 7.3 H (1.3-6.7) K/mm3 Absolute Nucleated RBC 0.000 (0.0-0.012) K/mm3 Nucleated RBC % 0.0 (0.0-0.2) % Sodium 137 (137-145) mmol/L Potassium 3.6 (3.4-5.0) mmol/L Chloride 102 (98-107) mmol/L Carbon Dioxide 26 (22-30) mmol/L Anion Gap 9 (4-12) mmol/L BUN 16 (9-20) mg/dL Creatinine 0.91 (0.7-1.3) mg/dL Estim Creat Clear Calc 94 ml/min Estimated GFR > 60 (59 - ) Glucose 104 (65-110) mg/dL Calcium 9.0 (8.4-10.2) mg/dL Total Bilirubin 0.8 (0.2-1.3) mg/dL AST 43 (17-59) U/L ALT 42 (6-50) U/L Alkaline Phosphatase 85 (38-126) U/L Total Protein 7.9 (6.3-8.2) g/dL Albumin 4.5 (3.5-5.1) g/dL Lipase 207 (23-300) U/L Urine Color Yellow (Yellow) Urine Appearance Clear (Clear) Urine pH 8.5 (5.0-9.0) Ur Specific [place] 1.012 (1.001-1.035) Urine Protein Negative (Negative) mg/dL Urine Glucose (UA) Negative (Negative) mg/dL Urine Ketones Negative (Negative) mg/dL Ur Blood (Man) Negative (Negative) Urine Nitrate Negative (Negative) Urine Bilirubin Negative (Negative) Urine Urobilinogen 0.2 (<2.0) mg/dL Leukocyte Esterase Rfl Negative (Negative) DAR/UL <Stephany Finney MD - Last Filed: 04/08/25 10:22> Lab Results 04/07/25 04/07/25 Range/Units 14:10 14:23 WBC 9.0 (4.5-10.0) K/mm3 RBC 5.78 (4.6-6.20) M/mm3 Hgb 15.7 (14.0-18.0) g/dL Hct 48.0 (42.0-52.0) % MCV 83.0 (80-100) fl MCH 27.2 (26-34) pg MCHC 32.7 (32-36) g/dl RDW 13.5 (11.5-14.5) % Plt Count 190 (150-375) k/mm3 MPV 10.1 (7.4-10.4) fl Immature Gran % (Auto) 0.2 (0-0.5) % Neut % (Auto) 81.5 H (45.5-73.1) % Lymph % (Auto) 9.8 L (18.3-44.2) % [place] % (Auto) 6.1 (2.6-8.5) % Eos % (Auto) 2.0 (0-4.4) % Baso % (Auto) 0.4 (0.2-1.2) % Lymph # (Auto) 0.88 L (0.9-3.2) K/mm3 [place] # (Auto) 0.6 (0.1-0.6) K/mm3 Eos # (Auto) 0.2 (0-0.3) K/mm3 Baso # (Auto) 0.0 (0.0-0.1) K/mm3 Abs Immat Gran (auto) 0.02 (0.00-0.031) K/mm3 Absolute Neuts (auto) 7.3 H (1.3-6.7) K/mm3 Absolute Nucleated RBC 0.000 (0.0-0.012) K/mm3 Nucleated RBC % 0.0 (0.0-0.2) % Sodium 137 (137-145) mmol/L Potassium 3.6 (3.4-5.0) mmol/L Chloride 102 (98-107) mmol/L Carbon Dioxide 26 (22-30) mmol/L Anion Gap 9 (4-12) mmol/L BUN 16 (9-20) mg/dL Creatinine 0.91 (0.7-1.3) mg/dL Estim Creat Clear Calc 94 ml/min Estimated GFR > 60 (59 - ) Glucose 104 (65-110) mg/dL Calcium 9.0 (8.4-10.2) mg/dL Total Bilirubin 0.8 (0.2-1.3) mg/dL AST 43 (17-59) U/L ALT 42 (6-50) U/L Alkaline Phosphatase 85 (38-126) U/L Total Protein 7.9 (6.3-8.2) g/dL Albumin 4.5 (3.5-5.1) g/dL Lipase 207 (23-300) U/L Urine Color Yellow (Yellow) Urine Appearance Clear (Clear) Urine pH 8.5 (5.0-9.0) Ur Specific [place] 1.012 (1.001-1.035) Urine Protein Negative (Negative) mg/dL Urine Glucose (UA) Negative (Negative) mg/dL Urine Ketones Negative (Negative) mg/dL Ur Blood (Man) Negative (Negative) Urine Nitrate Negative (Negative) Urine Bilirubin Negative (Negative) Urine Urobilinogen 0.2 (<2.0) mg/dL Leukocyte Esterase Rfl Negative (Negative) DAR/UL <Gunner Schulte MD - Last Filed: 04/07/25 17:32> Imaging Data Radiologist's impression: ITS Impressions Abdomen/Pelvis CT 04/07/25 15:36 IMPRESSION: 1. Enlarged prostate causing mild left hydroureter and moderate hydronephrosis. Multiple subcentimeter hypodensities are seen in both kidneys, too small to accurately characterize. Simple right renal cyst in lower pole of the right kidney. 2. Multiple fluid-filled distended loops of jejunum are seen in the mid abdomen, a nonspecific finding and can be seen in enteritis. 3. Partially visualized probable hydrocele. <Stephany Finney MD - Last Filed: 04/08/25 10:22> ITS Impressions Abdomen/Pelvis CT 04/07/25 15:36 IMPRESSION: 1. Enlarged prostate causing mild left hydroureter and moderate hydronephrosis. Multiple subcentimeter hypodensities are seen in both kidneys, too small to accurately characterize. Simple right renal cyst in lower pole of the right kidney. 2. Multiple fluid-filled distended loops of jejunum are seen in the mid abdomen, a nonspecific finding and can be seen in enteritis. 3. Partially visualized probable hydrocele. <Gunner Schulte MD - Last Filed: 04/07/25 17:32> Discharge Plan Discharge Clinical Impression: Abdominal pain, Enteritis, Enlarged prostate <Stephany Finney MD - Last Filed: 04/08/25 10:22> Patient Disposition: Home <Stephany Finney MD - Last Filed: 04/08/25 10:22> Condition: Stable <Stephany Finney MD - Last Filed: 04/08/25 10:22> Instructions: Antibiotic Form, Enlarged Prostate (BPH) (ED), Diverticulitis Diet (ED), Abdominal Pain (ED), Enteritis (ED) <Stephany Finney MD - Last Filed: 04/08/25 10:22> Additional Instructions: RETURN IF SYMPTOMS ARE WORSENING , CALL YOUR FAMILY PHYSICIAN, UROLOGIST, ENVIRONMENTAL SERVICES LEAD FOR APPOINTMENT, TAKE TYLENOL NEEDED FOR ACHES AND PAIN, CONTINUE HOME MEDICATIONS. <Stephany Finney MD - Last Filed: 04/08/25 10:22> Patient Language: Spanish <Stephany Finney MD - Last Filed: 04/08/25 10:22> Prescriptions: New levofloxacin 750 mg tablet 750 mg PO DAILY Qty: 5 0RF metronidazole 500 mg tablet 500 mg PO Q8H 5 Days Qty: 15 0RF <Stephany Finney MD - Last Filed: 04/08/25 10:22> Follow-up/Referrals: Alexx Marie MD [Physician] - 04/18/25 Evan,Mikael Lazcano MD [Primary Care Provider] - Jonatan Bull MD [Physician] - 04/10/25 <Stephany Finney MD - Last Filed: 04/08/25 10:22>
[2025-04-07 14:49] LABS: Alanine Aminotransferase 42 U/L (6-50); Albumin Level 4.5 g/dL (3.5-5.1); Alkaline Phosphatase 85 U/L (38-126); Anion Gap 9 mmol/L (4-12); Aspartate Amino Transferase 43 U/L (17-59); Bilirubin,Total 0.8 mg/dL (0.2-1.3); Blood Urea Nitrogen 16 mg/dL (9-20); Calcium 9.0 mg/dL (8.4-10.2); Carbon Dioxide 26 mmol/L (22-30); Chloride 102 mmol/L (98-107); Estimated CRCL calculation 94 ml/min; Estimated Glomerular Filt Rate > 60; Glucose 104 mg/dL (65-110); Lipase 207 U/L (23-300); Potassium 3.6 mmol/L (3.4-5.0); Sodium 137 mmol/L (137-145); Total Protein 7.9 g/dL (6.3-8.2)
[2025-04-07 17:44] VITALS: BP 143/87; PULSE 80; RESP 18; O2SAT 96
== END 2025-04-07 17:46 | disposition home or self-care (01) ==
PROVIDERS: Emergency Medicine; Emergency Provider Emergency Medicine; PCP Internal Medicine
DX: K52.9 Noninfective gastroenteritis and colitis, unspecified (principal); N40.0 Benign prostatic hyperplasia without lower urinary tract symptoms; Z87.442 Personal history of urinary calculi; Z90.49 Acquired absence of other specified parts of digestive tract; N28.1 Cyst of kidney, acquired
CPT/HCPCS: 36415; 74177; 80053; 81003; 83690; 85025; 96361; 96374; 96375; 99284; J1171; J2405; J7120; Q9967